=== PATIENT | female | born 1980 | race Caucasian/White ===

== ENCOUNTER 2016-03-06 12:25 | Outpatient (CLI) | payer MEDICAID ==
[2016-03-06 12:38] VITALS: BP 109/69
[2016-03-06] MEDS ORDERED: IBUPROFEN 800 MG TABLET ONE (13:43)
[2016-03-06] MEDS ORDERED: HYDROMORPHONE HCL 2 MG TABLET ONE ×2 (13:44→15:04)
--- NOTE | 2016-03-06 14:01 | L&D Flow Sheet ---
LD Flowsheet Datetime Report Generated by CPN: 03/06/2016 14:00 Datetime: 03/06/2016 13:35 Vaginal Exam Dilatation (cm): 0.0 (Homa Schwarz RN) Exam by: Dr. Swann (Homa Schwarz RN) Vaginal Exam Comments: No tension noted on cerclage. (Homa Schwarz, RN) Communication Communication: Provider at Bedside (Homa Schwarz RN) Provider Notified (Name): Cindyselena (Homa Schwarz RN) Datetime: 03/06/2016 13:24 Pain Pain Scale: 5 (Homa Schwarz RN) Pain Presence: Intermittent (Homa Schwarz RN) Pain Type: Cramping (Homa Schwarz RN) Pain Location: Abdomen; Back (Homa Schwarz RN) Pain Goal: 0 (Homa Schwarz RN) Pain Relief Measures: Comfort Measures (Homa Schwarz RN) Pain Coping: Talking Through Contractions (Homa Schwarz, RN) Vaginal Bleeding: None (Homa Schwarz, RN) Maternal Assessment Level of Consciousness: Fully Conscious (Homa Schwarz, RN) DTR's/Clonus: DTRs 2+; No Clonus (Homa Schwarz, RN) Headache: Occipital; Frontal (Homa Schwarz, RN) Breath Sounds, Left: Clear and Equal (Homa Schwarz, RN) Breath Sounds, Right: Clear and Equal (Homa Schwarz, RN) Nausea/Vomiting: Denies (Homa Schwarz, RN) RUQ Epigastric Pain: Denies (Homa Schwarz, RN) Datetime: 03/06/2016 13:23 Assessment A Monitor Mode: External US (Homa Schwarz, RN) FHR Baseline Rate : 155 (Homa Schwarz, RN) Datetime: 03/06/2016 13:13 Uterine Activity Contraction Comments: TOCO adjusted, referenced. (Homa Schwarz, RN) Datetime: 03/06/2016 13:07 Temperature (F): 99.6 (Homa Schwarz, RN) Temperature (C): 37.6 (QS system process) Datetime: 03/06/2016 13:04 Vital Signs NBP Sys/Altagracia/Mean (mmHg): 119 (QS system process) : 72 (QS system process) : 91 (QS system process) Pulse: 112 (QS system process)
[2016-03-06 14:56] LABS: APPEARANCE,URINE CLOUDY; BILIRUBIN,URINE NEGATIVE (NEGATIVE); GLUCOSE, URINE NEGATIVE (NEGATIVE); KETONES,URINE TRACE mg/dL (NEGATIVE); LEUKOCYTE ESTERASE,URINE LARGE (NEGATIVE); NITRITE,URINE POSITIVE (NEGATIVE); PROTEIN,URINE 30 mg/dL (NEGATIVE); URINE SPECIFIC GRAVITY 1.012; UROBILINOGEN,URINE NEGATIVE mg/dL (<2.0)
[2016-03-06 15:02] LABS: URINE BARBITURATES SCREEN NEGATIVE; URINE METHADONE SCREEN NEGATIVE; URINE OPIATES LOW NEGATIVE; URINE PHENCYCLIDINE SCREEN NEGATIVE
== END 2016-03-06 15:18 | disposition home or self-care (01) ==
LOC: ER 12:25 → LC 12:25 → EDSTATUS 12:52 → LC 15:18
PROVIDERS: ATTEND Specialist
PROC: 4A1HXCZ Monitoring of Products of Conception, Cardiac Rate, External Approach (ICD-10-PCS; principal; 2016-03-06)
DX: O47.02 False labor before 37 completed weeks of gestation, second trimester (principal); O09.522 Supervision of elderly multigravida, second trimester; O99.89 Other specified diseases and conditions complicating pregnancy, childbirth and the puerperium; M54.9 Dorsalgia, unspecified; Z3A.24 24 weeks gestation of pregnancy
CPT/HCPCS: 59899; 81001; 80307; J3490 ×2

== ENCOUNTER 2016-03-07 14:55 | Outpatient (CLI) | payer MEDICAID ==
[2016-03-07 15:06] VITALS: BP 104/61
--- NOTE | 2016-03-07 15:12 | ER Document Report ---
ED Medical Screen (RME) - General Stated Complaint: BACK PAIN, HEADACHE TRAVEL OUTSIDE OF THE [place] IN LAST 30 DAYS: No - Related Data Allergies/Adverse Reactions: iodine Allergy (Verified 11/22/15 10:14) Past Medical History - Past Medical History Cardiac Medical History: Reports: Hx DVT GI Medical History: Reports: Hx Gastritis, Hx Gastroesophageal Reflux Disease, Hx Irritable Bowel Musculoskeltal Medical History: Reports Hx Musculoskeletal Trauma Psychiatric Medical History: Reports: Hx Anxiety, Hx Depression, Hx Post Traumatic Stress Disorder Past Surgical History: Reports: Hx Appendectomy, Hx Oral Surgery - Immunizations Hx Diphtheria, Pertussis, Tetanus Vaccination: Yes
--- NOTE | 2016-03-07 16:00 | L&D Flow Sheet ---
LD Flowsheet Datetime Report Generated by CPN: 03/07/2016 16:00 Datetime: 03/07/2016 15:46 NBP Sys/Altagracia/Mean (mmHg): 108 (QS system process) : 64 (QS system process) : 81 (QS system process) Pulse: 103 (QS system process) LaborFlag: Antepartum (QS system process)
[2016-03-07 16:09] LABS: APPEARANCE,URINE SLIGHTLY-CLOUDY; BILIRUBIN,URINE NEGATIVE (NEGATIVE); GLUCOSE, URINE NEGATIVE (NEGATIVE); KETONES,URINE NEGATIVE (NEGATIVE); LEUKOCYTE ESTERASE,URINE LARGE (NEGATIVE); NITRITE,URINE POSITIVE (NEGATIVE); PROTEIN,URINE NEGATIVE (NEGATIVE); URINE SPECIFIC GRAVITY 1.011
[2016-03-07 16:27] LABS: URINE BARBITURATES SCREEN NEGATIVE; URINE METHADONE SCREEN NEGATIVE; URINE OPIATES LOW NEGATIVE; URINE PHENCYCLIDINE SCREEN NEGATIVE
[2016-03-07] MEDS ORDERED: CEFTRIAXONE INJ 1000 MG VIAL IM ONE (16:34)
[2016-03-07] MEDS ORDERED: LIDOCAINE 1% INJ-PF (10 MG/ML) 30 ML SDV INJ ONE (16:34)
[2016-03-07] MEDS ORDERED: LIDOCAINE 1% INJ-PF (10 MG/ML) 30 ML SDV ONE (16:49)
[2016-03-07] MEDS ORDERED: CEFTRIAXONE INJ 1000 MG VIAL ONE (16:49)
[2016-03-07] MEDS ORDERED: RINGERS SOLUTION,LACTATED 1,000 ML IV PRN (17:00)
[2016-03-07] MEDS ORDERED: CEFTRIAXONE 1 GM/D5W RTU 1 GM/50 ML RTUPB IV ONE (17:20)
[2016-03-07] MEDS ORDERED: ACETAMINOPHEN 100 ML IV ONE (17:20)
--- NOTE | 2016-03-07 18:00 | L&D Flow Sheet ---
LD Flowsheet Datetime Report Generated by CPN: 03/07/2016 18:00 Datetime: 03/07/2016 17:00 NBP Sys/Altagracia/Mean (mmHg): 110 (QS system process) : 69 (QS system process) : 83 (QS system process) Pulse: 100 (QS system process) LaborFlag: Antepartum (QS system process) Datetime: 03/07/2016 16:38 Pain Scale: 5 (Homa Schwarz RN) Pain Presence: Intermittent (Homa Schwarz RN) Pain Type: Cramping (Homa Schwarz RN) Pain Location: Abdomen; Back (Homa Schwarz RN) Pain Goal: 0 (Homa Schwarz RN) Vaginal Bleeding: None (Homa Schwarz RN) Level of Consciousness: Fully Conscious (Homa Schwarz RN) DTR's/Clonus: DTRs 2+; No Clonus (Homa Schwarz RN) Headache: Frontal (Homa Schwarz RN) Breath Sounds, Left: Clear and Equal (Homa Schwarz RN) Breath Sounds, Right: Clear and Equal (Homa Schwarz RN) Nausea/Vomiting: Denies (Homa Schwarz RN) RUQ Epigastric Pain: Denies (Homa Schwarz RN) LaborFlag: Antepartum (QS system process)
[2016-03-07] MEDS ORDERED: OXYCODONE HCL IR 5 MG TABLET ONE (18:15)
[2016-03-07] MEDS ORDERED: OXYCODONE HCL IR 5 MG TABLET PO ONE (18:29)
== END 2016-03-07 18:20 | disposition home or self-care (01) ==
LOC: LC 14:55 → ER 14:55 → EDSTATUS 15:22 → LC 18:20
PROC: 4A1HXCZ Monitoring of Products of Conception, Cardiac Rate, External Approach (ICD-10-PCS; principal; 2016-03-07)
DX: O23.42 Unspecified infection of urinary tract in pregnancy, second trimester (principal); O26.892 Other specified pregnancy related conditions, second trimester; R10.9 Unspecified abdominal pain; Z3A.24 24 weeks gestation of pregnancy
CPT/HCPCS: 59899; 87086; 87088; 81001; 87186; 80307; 76815; J3490 ×2; J0696 ×2; J0131

== ENCOUNTER 2016-03-09 23:18 | Outpatient (CLI) | payer MEDICAID ==
[2016-03-09 23:54] LABS: APPEARANCE,URINE CLEAR; BILIRUBIN,URINE NEGATIVE (NEGATIVE); GLUCOSE, URINE NEGATIVE (NEGATIVE); KETONES,URINE NEGATIVE (NEGATIVE); LEUKOCYTE ESTERASE,URINE NEGATIVE (NEGATIVE); NITRITE,URINE NEGATIVE (NEGATIVE); PROTEIN,URINE NEGATIVE (NEGATIVE); URINE SPECIFIC GRAVITY 1.006; UROBILINOGEN,URINE NEGATIVE mg/dL (<2.0)
[2016-03-09 23:59] LABS: AMNISURE (ROM) POSITIVE (NEGATIVE)
[2016-03-10] MEDS ORDERED: AMPICILLIN SOD INJ 2 GM VIAL IV ONE (00:12)
[2016-03-10] MEDS ORDERED: AZITHROMYCIN INJ 500 MG VIAL IV ONE ×2 (00:12→00:20)
[2016-03-10] MEDS ORDERED: BETAMET ACET/BETAMET NA INJ 6 MG/1 ML IM PRN (00:12)
[2016-03-10 00:14] LABS: URINE BARBITURATES SCREEN NEGATIVE; URINE METHADONE SCREEN NEGATIVE; URINE OPIATES LOW NEGATIVE; URINE PHENCYCLIDINE SCREEN NEGATIVE
[2016-03-10] MEDS ORDERED: AMPICILLIN SOD INJ 2 GM VIAL ONE (00:20)
[2016-03-10] MEDS ORDERED: BETAMET ACET/BETAMET NA INJ 6 MG/1 ML ONE (00:20)
[2016-03-10] MEDS ORDERED: MAGNESIUM SULFATE 100 ML IV ONE (00:32)
[2016-03-10] MEDS ORDERED: MAGNESIUM SULFATE 500 ML IV PRN (00:33)
[2016-03-10] MEDS ORDERED: MAGNESIUM SULFATE 4 GM/100 ML RTUPB IV ONE (00:36)
[2016-03-10] MEDS ORDERED: ONDANSETRON HCL INJ/PF 4 MG/2 ML SDV IV ONE (00:44)
[2016-03-10] MEDS ORDERED: ONDANSETRON HCL INJ/PF 4 MG/2 ML SDV ONE (00:46)
[2016-03-10] MEDS ORDERED: AMPICILLIN SODIUM 2 GM in NORMAL SALINE 100 ML IV PRN (00:48)
--- NOTE | 2016-03-10 00:49 | PDOC TRANSFER SUMMARY ---
General Admission Date/PCP: LILLIAN SUTTON DO Admission Date: 03/10/16 Transfer Date: 03/10/16 Accepting Facility: [facility] Accepting Physician: Dr Maynard Resuscitation Status: Full Code - Transfer Diagnosis (1) complicated by cervical shortening in second trimester Is this a current diagnosis for this admission?: Yes (2) premature rupture of membranes, antepartum Is this a current diagnosis for this admission?: Yes - Transfer Medications Home Medications: Cephalexin Monohydrate [Keflex 500 mg Capsule] 500 mg PO TID 03/10/16 Transfer Medications: Current Medications Ampicillin Sodium (Omnipen Inj 2 Gm Vial) 2 gm IV IVBAG (ED) ONE Stop: 03/10/16 00:13 Azithromycin (Zithromax Inj 500 Mg Vial) 500 mg IV IVBAG (ED) ONE Stop: 03/10/16 00:13 Betamethasone Acet/Betameth SodPhos (Celestone Inj 6 Mg/1 Ml) 6 mg IM ONCE PRN Stop: 04/09/16 00:11 - Allergies Allergies/Adverse Reactions: iodine Allergy (Verified 11/22/15 10:14) - Diet/Activity Discharge Diet: As Tolerated, Regular Discharge Activity: Bedrest, Pelvic Rest Hospital Course Hospital Course: 35yo EDC 06/08/2016 EGA 25+0 presents c/o leakage of fluid since 2230 . Pt reports only occasional cramping and denies and vaginal bleeding. Patient denies trauma, vaginal intercourse or drug use. She has had 3 prior term deliveries without complication. This she was noted to have asymptomatic shortening cervix and M placed a cerclage around 02/10/16. Patient reported no complications until this week when noted to have uti and started on keflex yesterday. Pt reports no other medications (stopped zemerona and ASA). 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 She did develop a DVT from this but has not been on any anticoagulation. Physical Exam Vital Signs: Intake & Output 03/08/16 03/09/16 03/10/16 06:59 06:59 06:59 Weight 74 kg General appearance: PRESENT: no acute distress, cooperative Respiratory exam: PRESENT: clear to auscultation mirna Cardiovascular exam: PRESENT: RRR GI/Abdominal exam: PRESENT: normal bowel sounds, soft. ABSENT: distended, guarding, mass, organolmegaly, rebound, tenderness Gentrourinary exam: PRESENT: other - fht 150 age appropriate, toco no ctx noted. Uterus is nontender Sterile Spec exam +pooling (also + Amnisure). cerclage in place. cervix appears several cm LONG and closed. no bleeding is noted Extremities exam: PRESENT: full ROM. ABSENT: calf tenderness, clubbing, pedal edema Psychiatric exam: PRESENT: appropriate affect, normal mood. ABSENT: homicidal ideation, suicidal ideation Results Laboratory Results: 03/09/16 23:29 Urine Color STRAW Urine Appearance CLEAR Urine pH 7.0 Ur Specific [place] 1.006 Urine Protein NEGATIVE Urine Glucose (UA) NEGATIVE Urine Ketones NEGATIVE Urine Blood SMALL H Urine Nitrite NEGATIVE Ur Leukocyte Esterase NEGATIVE Urine WBC (Auto) 3 Urine RBC (Auto) 1 Plan Discharge Plan: Transfer to [facility] for teriary care and NICU. Betamethasone given. Ampicillin and zithromax IV given. Magnesium Sulfate for neuroprotection and aid with transfer.
[2016-03-10] MEDS ORDERED: AMPICILLIN SOD INJ 2 GM VIAL IV PRN (00:50)
[2016-03-10] MEDS ORDERED: DIPHENHYDRAMINE HCL 25 MG CAPSULE ONE (01:07)
[2016-03-10] MEDS ORDERED: DIPHENHYDRAMINE HCL 50 MG/ML VIAL ONE (01:08)
--- NOTE | 2016-03-10 04:46 | L&D Flow Sheet ---
LD Flowsheet Datetime Report Generated by CPN: 03/10/2016 04:45 Datetime: 03/10/2016 01:52 Communication Comments: [facility] service left with patient for [facility] (Trudy Field, RN) Datetime: 03/10/2016 01:32 NBP Sys/Altagracia/Mean (mmHg): 113 (QS system process) : 68 (QS system process) : 85 (QS system process) Pulse: 93 (QS system process) LaborFlag: Antepartum (QS system process) Datetime: 03/10/2016 01:30 Monitor Mode: External; Palpation (Trudy Field, RN) Frequency (min): Irritability (Trudy Field, RN) Resting Tone (Palpate): Relaxed (Trudy Field, RN) Contraction Comments: No contractions noted on strip (Trudy Field, RN) Datetime: 03/10/2016 01:21 Communication: Report Given to @ A.Doff, RN at [facility] (Trudy Field, RN) Datetime: 03/10/2016 01:20 NBP Sys/Altagracia/Mean (mmHg): 108 (QS system process) : 62 (QS system process) : 80 (QS system process) Pulse: 93 (QS system process) LaborFlag: Antepartum (QS system process) Datetime: 03/10/2016 01:16 Medication Comments: 2 gm started (Trudy Field, RN) Datetime: 03/10/2016 01:15 Monitor Mode: External; Palpation (Trudy Field, RN) Frequency (min): Irritability (Trudy Field, RN) Resting Tone (Palpate): Relaxed (Trudy Field, RN) Contraction Comments: No contractions noted on strip (Trudy Field, RN) Datetime: 03/10/2016 01:10 Communication Comments: Pt experiencing pruritis. Call placed to Dr Salas and made aware of same. Orders received from Dr Salas for Benadryl 50mg IVP. Orders carried out, primary RN J Bass made aware, medication obtained and given to primary RN. (Gifty Lane, RN) Datetime: 03/10/2016 01:07 Patient Care Comments: Consents for transfer signed. (Simi Richard, RN) Datetime: 03/10/2016 01:00 Monitor Mode: External; Palpation (Trudy Rosado RN) Frequency (min): Irritability (Trudy Rosado, RN) Resting Tone (Palpate): Relaxed (Trudy Rosado, RN) Contraction Comments: No contractions noted on strip (Trudy Rosado, RN) Datetime: 03/10/2016 00:57 Magnesium/Antihypertensives: Magnesium Sulfate IV Loading (Gm) @ 4 gm (Simi Richard, RN) Datetime: 03/10/2016 00:54 Communication: Report Given to @ Anisa, RN (Rtudy Field, RN) Communication Comments: Report given to [facility] transport center (Trudy Field, RN) Datetime: 03/10/2016 00:52 Antibiotics: Zithromax (Simi Richard, RN) Medication Comments: 500 mg IV hung. (Simi Richard, RN) Datetime: 03/10/2016 00:50 Antibiotics: Zithromax (Trudy Field, RN) Medication Comments: 500 mg (Trudy Field, RN) Datetime: 03/10/2016 00:46 Antiemetics/Antacids: Zofran IV (mg) @ 4 (Trudy Field, RN) Datetime: 03/10/2016 00:44 Antibiotics: Ampicillin IV 2 Gm (Trudy Field, RN) Datetime: 03/10/2016 00:35 Communication Comments: Pt experiencing some nausea after IV insertion. Dr Salas on unit and made aware of same. Orders received for 4mg Zofran IVP. Orders carried out, primary RN J Bass made aware of same. (Gifty Lane RN) Datetime: 03/10/2016 00:31 Steroids: Celestone 12mg IM - Dose 1 (Trudy Rosado, YOSVANY) Datetime: 03/10/2016 00:30 Monitor Mode: External; Palpation (Trudy Rosado RN) Resting Tone (Palpate): Relaxed (Trudy Rosado RN) Contraction Comments: No contractions noted on strip (Trudy Rosado RN) IV/Blood Work: IV Started; IV Bolus Started; New IV Bag Hung (Gifty Lane RN) Datetime: 03/10/2016 00:17 Communication Comments: DrAriana Salas at bedside (Trudy Rosado, RN) Datetime: 03/10/2016 00:10 NBP Sys/Altagracia/Mean (mmHg): 107 (QS system process) : 66 (QS system process) : 81 (QS system process) Pulse: 88 (QS system process) LaborFlag: Antepartum (QS system process) Datetime: 03/10/2016 00:08 Communication: RN Reviewed Strip; Provider Orders Received (Trudy Rosado RN) Communication Comments: Orders received from Dr. Salas for Amp 2 gms; dose of betamethazone; dose of zithromax 500 mg IV x1 (Trudy Rosado, RN) Datetime: 03/10/2016 00:00 Monitor Mode: External; Palpation (Trudy Rosado RN) Resting Tone (Palpate): Relaxed (Trudy Rosado RN) Contraction Comments: No contractions noted on strip; patient states she is cramping (Trudy Rosado RN) Monitor Mode: External US (Trudy Rosado RN) FHR Baseline Rate : 130 (Trudy Rosado RN) Variability: Moderate 6-25 bpm (Trudy Rosado RN) Comments: Appropriate for gestational age (Trudy Rosado RN) Datetime: 03/09/2016 23:46 Pain Scale: 3 (Trudy Rosado RN) Pain Presence: Intermittent (Trudy Rosado RN) Pain Type: Cramping (Trudy Rosado RN) Pain Location: Abdomen (Trudy Rosado, RN) Pain Goal: 0 (Trudy Rosado RN) Pain Relief Measures: Comfort Measures (Trudy Rosado RN) Pain Coping: Talking Through Contractions; Breathing Through Contractions (Trudy Rosado RN) Vaginal Bleeding: None (Trudy Rosado RN) Level of Consciousness: Fully Conscious (Trudy Rosado RN) DTR's/Clonus: DTRs 1+; No Clonus (Trudy Rosado RN) Headache: Generalized (Trudy Rosado RN) Breath Sounds, Left: Clear and Equal (Trudy Rosado RN) Breath Sounds, Right: Clear and Equal (Trudy Rosado RN) Nausea/Vomiting: Present (Trudy Rosado RN) RUQ Epigastric Pain: Denies (Trudy Rosado RN) Instructional Method: Verbal; Patient Instructed; Verbalized Understanding (Trudy Rosado RN) Plan of Care: Plan of Care Discussed (Trudy Rosado RN) Unit Routine: Norris to Room; Call Manriquez; Bed; Visiting Policy; Waiting Areas; Phone/Cell Phone Use; Unit Personnel; Handwashing; Flu/Illness Precautions; Monitoring; Safety/Fall Risk Prevention; Bathroom Privileges (Trudy Rosado RN) LaborFlag: Antepartum (QS system process) Datetime: 03/09/2016 23:40 NBP Sys/Altagracia/Mean (mmHg): 131 (QS system process) : 61 (QS system process) : 84 (QS system process) Pulse: 80 (QS system process) LaborFlag: Antepartum (QS system process) Datetime: 03/09/2016 23:38 Stage of : Antepartum (Simi Ramos RN)
--- NOTE | 2016-03-10 04:46 | L&D Current Admission ---
Current Admit Datetime Report Generated by CPN: 03/10/2016 04:45 ADMISSION INFORMATION Chief Complaint: Suspected Rupture of Membranes (03/09/2016 23:46:Trudy Rosado RN) Chief Complaint: Back Pain; Headache (03/07/2016 16:38:Homa Schwarz RN) Chief Complaint: Uterine Cramping; Back Pain (03/06/2016 13:24:Homa Schwarz RN)
--- NOTE | 2016-03-10 04:46 | L&D General Admission ---
General Admit Datetime Report Generated by CPN: 03/10/2016 04:45 INFORMATION Patient Age: 35 (03/06/2016 12:50:QS system process) EDC: 06/26/2016 00:00 (03/06/2016 13:07:Virgen Calles RN) : 6 (03/06/2016 13:07:Homa Schwarz RN) Para: 3 (03/10/2016 02:01:Trudy Rosado RN) Para: 3 (03/07/2016 18:42:Virgen Calles RN) Para: 3 (03/06/2016 13:07:Homa Schwarz RN) Term: 3 (03/06/2016 13:07:Homa Schwarz RN) : 0 (03/06/2016 13:07:Homa Schwarz RN) Spontaneous Abortions: 2 (03/06/2016 13:07:Homa Schwarz RN) Induced Abortions: 0 (03/06/2016 13:07:Homa Schwarz RN) Livin (03/06/2016 13:07:Homa Schwarz RN) Cesareans: 0 (03/06/2016 13:07:Homa Schwarz RN) VBACs: 0 (03/06/2016 13:07:Homa Schwarz RN) Ectopic: 0 (03/06/2016 13:07:Homa Schwarz RN) Multiple Births: 0 (03/06/2016 13:07:Homa Schwarz RN) Baby, Number in Womb: 1 (03/10/2016 02:01:Trudy Rosado RN) Baby, Number in Womb: 1 (03/07/2016 18:42:Virgen Calles RN) Baby, Number in Womb: 1 (03/06/2016 13:07:Homa Schwarz RN) CARE Primary Information Security: [facility] (03/06/2016 13:07:Homa Schwarz RN) Month of 1st Visit: February 2016 (03/06/2016 13:07:Homa Schwarz RN) Adequate Care: Yes (03/06/2016 13:07:Homa Schwarz RN) Height (in): 66 (03/10/2016 00:10:QS system process) Height (in): 66 (03/07/2016 18:12:QS system process) Height (in): 66 (03/07/2016 18:11:QS system process) Height (in): 66 (03/07/2016 15:22:QS system process) Height (in): 66 (03/06/2016 13:01:QS system process) Height (in): 66 (03/06/2016 12:59:QS system process) Height (in): 66 (03/06/2016 12:57:QS system process) Height (in): 66 (03/06/2016 12:55:QS system process) Height (in): 66 (03/06/2016 12:52:QS system process) Height (in): 66 (03/06/2016 12:50:QS system process) ALLERGIES Medication Allergy: No (03/06/2016 13:07:Homa Schwarz RN) Medication Allergies: iodine (11/22/2015) (03/06/2016 12:50:QS system process) Latex Allergy: No Latex Allergies (03/06/2016 13:07:Homa Schwarz RN) Food Allergies: seafood (03/06/2016 13:07:Homa Schwarz RN) Environmental Allergies: None (03/06/2016 13:07:Homa Schwarz RN) COMMUNICATION Primary Language: Niuean (03/06/2016 13:07:Homa Schwarz RN) Medical Tx Preferred Language: Niuean (03/06/2016 13:07:Homa Schwarz RN) Communication Barrier(s): None (03/06/2016 13:07:Homa Schwarz RN) DEMOGRAPHICS Address: [address] [place] [id number] (03/06/2016 12:50:QS system process) Zipcode: [address] (03/06/2016 12:50:QS system process) Home (03/06/2016 12:50:QS system process) SSN: [id number] (03/06/2016 12:50:QS system process) Next of Kin Name: CHERIE LEWIS (03/06/2016 12:50:QS system process) Next of Kin (03/06/2016 12:50:QS system process) Next of Kin Relationship: CH (03/06/2016 12:50:QS system process) Date of : 1980 (03/06/2016 12:50:QS system process) Marital Status: (03/06/2016 12:50:QS system process) Sex: Female (03/06/2016 12:50:QS system process) Race: (03/06/2016 12:50:QS system process) Ethnicity: Non- or (03/06/2016 12:50:QS system process) Confucianism: Jehovah'S Witness (03/06/2016 12:50:QS system process) DRUG AND ALCOHOL USE Alcohol: No (03/06/2016 13:07:Homa Schwarz RN) Cigarettes: Never Smoker. [id number] (03/06/2016 13:07:Homa Schwarz RN) Marijuana: No (03/06/2016 13:07:Homa Schwarz RN) Cocaine: No (03/06/2016 13:07:Homa Schwarz RN) Other Illicit Drugs: No (03/06/2016 13:07:Homa Schwarz RN) VACCINE HISTORY Influenza Vaccine: No (03/06/2016 13:07:Homa Schwarz RN) Pneumococcal Vaccine: No (03/06/2016 13:07:Homa Schwarz RN) Tetanus Vaccine: No (03/06/2016 13:07:Homa Schwarz RN) Tdap Vaccine: No (03/06/2016 13:07:Homa Schwarz RN) Hepatitis B Vaccine: No (03/06/2016 13:07:Homa Schwarz RN) Circumcision: No (03/06/2016 13:07:Homa Schwarz RN) Classes Attended: No (03/06/2016 13:07:Homa Schwarz RN) Tubal Ligation: Yes (03/06/2016 13:07:Homa Schwarz RN) Tubal Authorization Signed: N/A (03/06/2016 13:07:Homa Schwarz RN) Consent: N/A (03/06/2016 13:07:Homa Schwarz RN) Consent Signed: N/A (03/06/2016 13:07:Homa Schwarz RN) Pain Management Plans: Medications (03/06/2016 13:07:Homa Schwarz RN) Plans for Labor and Delivery: None (03/06/2016 13:07:Homa Schwarz RN) Support Person: Cherie Lewis (03/06/2016 13:07:Homa Schwarz RN) Support Person Relationship: Other (03/06/2016 13:07:Homa Schwarz RN) Other Relationship: daughter (03/06/2016 13:07:Homa Schwarz RN) Cultural/Spritual Practice: No (03/06/2016 13:07:Homa Schwarz RN) Spir/Cult Dietary Needs: No (03/06/2016 13:07:Homa Schwarz RN) LIVING SITUATION/DISCHARGE PLAN Living Arrangements: House (03/06/2016 13:07:Homa Schwarz RN) Adequate Access to:: Electric; Heat; Refrigeration; Plumbing/Running water; Phone; Transportation (03/06/2016 13:07:Homa Schwarz RN) WIC Program: Yes (03/06/2016 13:07:Homa Schwarz RN) Discharge Ios Developer Person: Cherie Lewis (03/06/2016 13:07:Homa Schwarz RN) Person to Help after Discharge: Cherie Lewis (03/06/2016 13:07:Homa Schwarz RN) Currently Using Commun Resources: Yes (03/06/2016 13:07:Homa Schwarz RN) Specify Current Resource Used: Medicaid (03/06/2016 13:07:Homa Schwarz RN) Outside Agency/Tail Edger: Yes (03/06/2016 13:07:Homa Schwarz RN) Specify Agency/ Tail Edger: unsure (03/06/2016 13:07:Homa Schwarz RN) Adoption Requested: No (03/06/2016 13:07:Homa Schwarz RN) Pt Contact w/infant Post : N/A (03/06/2016 13:07:Homa Schwarz RN) OB/PREVIOUS HISTORY Previous Procedures: Ultrasound; NST (03/06/2016 13:07:Homa Shcwarz RN) Current Procedures: Ultrasound; NST; Cerclage (03/06/2016 13:07:Homa Schwarz RN) History of Previous : No (03/06/2016 13:07:Homa Schwarz RN) History of Gestational Diabetes: No (03/06/2016 13:07:Homa Schwarz RN) History of PIH: No (03/06/2016 13:07:Homa Schwarz RN) History of Incompetent Cervix: No (03/06/2016 13:07:Homa Schwarz RN) History of Placenta Previa/Abrup: No (03/06/2016 13:07:Homa Schwarz RN) History of Macrosomia: No (03/06/2016 13:07:Homa Schwarz RN) History of IUGR: No (03/06/2016 13:07:Homa Schwarz RN) History of Hemorrhage: No (03/06/2016 13:07:Homa Schwarz RN) History of Loss/Stillborn: No (03/06/2016 13:07:Homa Schwarz RN) History of : No (03/06/2016 13:07:Homa Schwarz RN) History of D (Rh) Sensitization: No (03/06/2016 13:07:Homa Schwarz RN) History Recurrent Loss/Stillborn: No (03/06/2016 13:07:Homa Schwarz RN) History Depression/PP Depression: Yes (03/06/2016 13:07:Homa Schwarz RN) History of Uterine Anomaly/CRISTINE: No (03/06/2016 13:07:Homa Schwarz RN) History of Infertility: No (03/06/2016 13:07:Homa Schwarz RN) History of ART Treatment: No (03/06/2016 13:07:Homa Schwarz RN) History of CRISTINE: No (03/06/2016 13:07:Homa Schwarz RN) Comments Obstetrical History: G1 - 41 wks (1998) G2 - 41 wks (2000) G3 - 41 wks (2003) G4 - SAB at 5 wks (2015) G5 - SAB at 9 wks (2015) G6 - current (cerclage for short cervix), AMA (03/06/2016 13:07:Homa Schwarz RN) MEDICAL HISTORY Med Hx Diabetes: No (03/06/2016 13:07:Homa Schwarz RN) Med Hx Hypertension: No (03/06/2016 13:07:Homa Schwarz RN) Med Hx Heart Disease: No (03/06/2016 13:07:Homa Schwarz RN) Med Hx Autoimmune Disorder: Yes (03/06/2016 13:07:Homa Schwarz RN) Med Hx Kidney Disease/UTI: No (03/06/2016 13:07:Homa Schwarz RN) Med Hx Neurologic/Epilepsy: No (03/06/2016 13:07:Homa Schwarz RN) Med Hx Psychiatric Disorders: Yes (03/06/2016 13:07:Homa Schwarz RN) Med Hx Hepatitis/Liver Disease: No (03/06/2016 13:07:oHma Schwarz RN) Med Hx Varicosities/Phlebitis: No (03/06/2016 13:07:Homa Schwarz RN) Med Hx Thyroid Dysfunction: No (03/06/2016 13:07:Homa Schwarz RN) Med Hx Trauma/Violence: No (03/06/2016 13:07:Homa Schwarz RN) Med Hx Blood Transfusion: No (03/06/2016 13:07:Homa Schwarz RN) Med Hx Pulmonary (Asthma,TB): No (03/06/2016 13:07:Homa Schwarz RN) Med Hx Breast: No (03/06/2016 13:07:Homa Schwarz RN) Med Hx INSTRUCTOR OF EDUCATION Surgery: No (03/06/2016 13:07:Homa Schwarz RN) Med Hx Hospitalization/Surgery: Yes (03/06/2016 13:07:Homa Schwarz RN) Med Hx Anesthetic Complications: No (03/06/2016 13:07:Homa Schwarz RN) Med Hx Abnormal Pap Smear: No (03/06/2016 13:07:Homa Schwarz RN) Other Medical Diseases: No (03/06/2016 13:07:Homa Schwarz RN) Med Hx Significant Family Hx: No (03/06/2016 13:07:Homa Schwarz RN) Details of Med/Surg Hx: Guillian [place] Syndrome, Anxiety _ Depression, hx DVT, x 3, appendectomy 2005 (03/06/2016 13:07:Homa Schwarz RN) INFECTIOUS HISTORY Inf Hx Gonorrhea: No (03/06/2016 13:07:Homa Schwarz RN) Inf Hx Chlamydia: No (03/06/2016 13:07:Homa Schwarz RN) Inf Hx Syphilis: No (03/06/2016 13:07:Homa Schwarz RN) Inf Hx HIV/AIDS: No (03/06/2016 13:07:Homa Schwarz RN) Inf Hx Human Papilloma Virus: No (03/06/2016 13:07:Homa Schwarz RN) Inf Hx Pt/Partner Genital Herpes: No (03/06/2016 13:07:Homa Schwarz RN) Inf Hx Tuberculosis/Exposure: No (03/06/2016 13:07:Homa Schwarz RN) Inf Hx Hepatitis B,C: No (03/06/2016 13:07:Homa Schwarz RN) Inf Hx Rash or Viral Illness: No (03/06/2016 13:07:Homa Schwarz RN) GENETIC HISTORY Gen Hx Age >=35 at JOYCE: No (03/06/2016 13:07:Homa Schwarz RN) Gen Hx Thalassemia: No (03/06/2016 13:07:Homa Schwarz RN) Gen Hx Congenital Heart Defect: No (03/06/2016 13:07:Homa Schwarz RN) Gen Hx Neural Tube Defect: No (03/06/2016 13:07:Homa Schwarz RN) Gen Hx Down's Syndrome: No (03/06/2016 13:07:Homa Schwarz RN) Gen Hx Ashutosh-Sachs: No (03/06/2016 13:07:Homa Schwarz RN) Gen Hx Elayne: No (03/06/2016 13:07:Homa Schwarz RN) Gen Hx Familial Dysautonomia: No (03/06/2016 13:07:Homa Schwarz RN) Gen Hx Sickle Cell Disease/Trait: No (03/06/2016 13:07:Homa Schwarz RN) Gen Hx Hemophilia/Blood Disorder: No (03/06/2016 13:07:Homa Schwarz RN) Gen Hx Muscular Dystrophy: No (03/06/2016 13:07:Homa Schwarz RN) Gen Hx Cystic Fibrosis: No (03/06/2016 13:07:Homa Schwarz RN) Gen Hx Huntingtons Chorea: No (03/06/2016 13:07:Homa Schwarz RN) Gen Hx Mental Retardation/Autism: No (03/06/2016 13:07:Homa Schwarz RN) Gen Hx Tested for Fragile X: No (03/06/2016 13:07:Homa Schwarz RN) Gen Hx Other Inher/Chromosomal: No (03/06/2016 13:07:Homa Schwarz RN) Gen Hx Maternal Metabolic DO: No (03/06/2016 13:07:Homa Schwarz RN) Gen Hx Pt Father or FOB Defect: No (03/06/2016 13:07:Homa Schwarz RN) Gen Hx Other Genetic History: No (03/06/2016 13:07:Homa Schwarz RN) Gen Hx Drugs/Meds since LMP: No (03/06/2016 13:07:Homa Schwarz RN)
--- NOTE | 2016-03-10 04:46 | Antepartum Discharge Summary ---
Antepartum DC Datetime Report Generated by CPN: 03/10/2016 04:45 Diet: Regular (03/10/2016 02:01:Trudy Rosado RN) Diet: Regular (03/07/2016 18:42:Virgen Calles RN) Activity: Normal Activity (03/07/2016 18:42:Virgen Calles RN) Activity Restrictions: No Exercising; Minimize Walking; No Sexual Activity; Nothing in Vagina - [place], Tampons, [place] (03/07/2016 18:42:Virgen Calles RN) Instructions Given To: Patient (03/07/2016 18:42:Virgen Calles RN) Instructions Understood: Patient Verbalized Understanding (03/07/2016 18:42:Virgen Calles RN) Referrals: None (03/07/2016 18:42:Virgen Calles RN) Educational Materials- Other: UTI (03/07/2016 18:42:Virgen Calles RN) Discharged AMA: No (03/10/2016 02:01:Trudy Rosado RN) Discharged AMA: No (03/07/2016 18:42:Virgen Calles RN) Discharge Date/Time: 03/10/2016 01:52 (03/10/2016 02:01:Trudy Rosado RN) Discharge Date/Time: 03/07/2016 18:20 (03/07/2016 18:42:Virgen Calles RN) Discharged To: Other (03/10/2016 02:01:Trudy Rosado RN) Discharged To: Home (03/07/2016 18:42:Virgen Calles RN) Discharge Provider Name: Dr. Salas (03/10/2016 02:01:Trudy Rosado RN) Discharge Provider Name: Dr Morelos (03/07/2016 18:42:Virgen Calles RN) Accompanied By: Self (03/10/2016 02:01:Trudy Rosado RN) Accompanied By: Family (03/07/2016 18:42:Virgen Calles RN) Discharge Method: Stretcher (03/10/2016 02:01:Trudy Rosado RN) Discharge Method: Wheelchair (03/07/2016 18:42:Virgen Calles RN) Condition: Stable (03/10/2016 02:01:Trudy Rosado RN) Condition: Stable (03/07/2016 18:42:Virgen Calles RN) Follow Up With: [facility] (03/07/2016 18:42:Virgen Calles RN) Follow Up On: As Scheduled (03/07/2016 18:42:Virgen Calles RN) Comments: Patient SROM and was transported via [facility] to [facility]. (03/10/2016 02:01:Trudy Rosado RN) Comments: s/s to report to provider (Annotations: Data stored by CPN on behalf of user) (03/07/2016 18:42:Virgen Calles RN)
--- NOTE | 2016-03-10 04:46 | L&D Admission Assessment ---
LD ADM ASMT Datetime Report Generated by CPN: 03/10/2016 04:45 Assessment Type: Triage (03/09/2016 23:46:Trudy Rosado RN) Weight (lb): 163 (03/10/2016 00:10:QS system process) Weight (kg): 74.1 (03/10/2016 00:10:QS system process) BMI: 26.3 (03/10/2016 00:10:QS system process) Pain Scale: 3 (03/09/2016 23:46:Trudy Rosado RN) Pain Presence: Intermittent (03/09/2016 23:46:Trudy Rosado RN) Pain Type: Cramping (03/09/2016 23:46:Trudy Rosado RN) Pain Location: Abdomen (03/09/2016 23:46:Trudy Rsoado RN) Pain Goal: 0 (03/09/2016 23:46:Trudy Rosado RN) Pain Related to Contraction: Unsure (03/09/2016 23:46:Trudy Rosado RN) Frequency (min): Irritability (03/10/2016 01:30:Trudy Rosado RN) Frequency (min): Irritability (03/10/2016 01:15:Trudy Rosado RN) Frequency (min): Irritability (03/10/2016 01:00:Trudy Rosado RN) Resting Tone [place]: Relaxed (03/10/2016 01:30:Trudy Rosado RN) Resting Tone [place]: Relaxed (03/10/2016 01:15:Trudy Rosado RN) Resting Tone [place]: Relaxed (03/10/2016 01:00:Trudy Rosado RN) Resting Tone [place]: Relaxed (03/10/2016 00:30:Trudy Rosado RN) Resting Tone [place]: Relaxed (03/10/2016 00:00:Trudy Rosado RN) Contraction Comments: No contractions noted on strip (03/10/2016 01:30:Trudy Rosado RN) Contraction Comments: No contractions noted on strip (03/10/2016 01:15:Trudy Rosado RN) Contraction Comments: No contractions noted on strip (03/10/2016 01:00:Trudy Rosado RN) Contraction Comments: No contractions noted on strip (03/10/2016 00:30:Trudy Rosado RN) Contraction Comments: No contractions noted on strip; patient states she is cramping (03/10/2016 00:00:Trudy Rosado RN) Level of Consciousness: Fully Conscious (03/09/2016 23:46:Trudy Rosado RN) DTR's/Clonus: DTRs 1+; No Clonus (03/09/2016 23:46:Trudy Rosado RN) Headache: Generalized (03/09/2016 23:46:Trudy Rosado RN) Dizziness: No (03/09/2016 23:46:Trudy Rosado RN) Blurred Vision: No (03/09/2016 23:46:Trudy Rosado RN) Extremity Numbness/Tingling : None (03/09/2016 23:46:Trudy Rosado RN) Extremity Movement: Full Range of Motion (03/09/2016 23:46:Trudy Rosado RN) Heart Rhythm: Regular (03/09/2016 23:46:Trudy Rosado RN) Nailbeds: [place] (03/09/2016 23:46:Trudy Rosado RN) Capillary Refill: Less than 3 Seconds (03/09/2016 23:46:Trudy Rosado RN) Lower Extremities Edema: None (03/09/2016 23:46:Trudy Rosado RN) Lower Extremities Edema Degree: None (03/09/2016 23:46:Trudy Rosado RN) Upper Extremities Edema: None (03/09/2016 23:46:Trudy Rosado RN) Upper Extremities Edema Degree: None (03/09/2016 23:46:Trudy Rosado RN) Facial Edema: None (03/09/2016 23:46:Trudy Rosado RN) Tri's Sign Left Leg: Negative (03/09/2016 23:46:Trudy Rosado RN) Tri's Sign Right Leg: Negative (03/09/2016 23:46:Trudy Rosado RN) DVT Risk Age: Age less than 41 years (03/09/2016 23:46:Trudy Rosado RN) DVT Risk BMI: BMI<31 (03/09/2016 23:46:Trudy Rosado RN) DVT Risk Surgery: History of Prior Major Surgery (03/09/2016 23:46:Trduy Rosado RN) DVT Risk Other: Women Only- or (<1 month) (03/09/2016 23:46:Trudy Rosado RN) DVT Risk Total: 2 (03/09/2016 23:46:QS system process) DVT Risk Text: Moderate Risk (10-20%) - Consider stockings, compresssion device, pharmacological therapy per hospital policy (03/09/2016 23:46:QS system process) Respiratory Effort: Unlabored; Regular Rhythm; Equal Expansion (03/09/2016 23:46:Trudy Rosado RN) Breath Sounds, Left: Clear and Equal (03/09/2016 23:46:Trudy Rosado RN) Breath Sounds, Right: Clear and Equal (03/09/2016 23:46:Trudy Rosado RN) Cough Productivity: None (03/09/2016 23:46:Trudy Rosado RN) Nausea/Vomiting: Present (03/09/2016 23:46:Trudy Rosado RN) Bowel Sounds: Normoactive (03/09/2016 23:46:Trudy Rosado RN) RUQ Epigastric Pain: Denies (03/09/2016 23:46:Trudy Rosado RN) Bowel Patterns: Soft, Formed Stool (03/09/2016 23:46:Trudy Rosado RN) Hemorrhoids: None (03/09/2016 23:46:Trudy Rosado RN) Diet Type: Regular diet (03/09/2016 23:46:Trudy Rosado RN) Last Meal: 03/09/2016 19:30 (03/09/2016 23:46:Trudy Rosado RN) Bladder: Nondistended (03/09/2016 23:46:Trudy Rosado RN) Frequency of Urination: No (03/09/2016 23:46:Trudy Rosado RN) Urination Burning: No (03/09/2016 23:46:Trudy Rosado RN) CVA Tenderness: No (03/09/2016 23:46:Trudy Rosado RN) Skin Color: Normal for Race (03/09/2016 23:46:Trudy Rosado RN) Skin Temperature: Warm (03/09/2016 23:46:Trudy Rosado RN) Skin Moisture: Dry (03/09/2016 23:46:Trudy Rosado RN) Vu Scale Sensory Perception: No Impairment- Responds to verbal commands. Has no sensory deficit which would limit ability to feel or voice pain or discomfort (03/09/2016 23:46:Trudy Rosado RN) Vu Scale Moisture: Rarely Moist- Skin is usually dry. Linen only requires changing at routine intervals (03/09/2016 23:46:Trudy Rosado RN) Vu Scale Activity: Walks Frequently- Walks outside the room at least twice a day and inside room at least every 2 hours during the day. (03/09/2016 23:46:Trudy Rosado RN) Vu Scale Mobility: No Limitations- Makes major and frequent changes in position without assistance (03/09/2016 23:46:Trudy Rosado RN) Vu Scale Nutrition: Excellent- Eats most of every meal. Never refuses a meal. Usually eats a total of 4 or more servings of meat and dairy products. Occasionally eats between meals. Does not require supplementation (03/09/2016 23:46:Trudy Rosado RN) Vu Scale Friction and Shear: No Apparent Problem- Moves in bed and in chair independently and has sufficient muscle strength to lift up completely during move. Maintains good position in bed or chair at all times (03/09/2016 23:46:Trudy Rosado RN) Vu Scale Total: 23 (03/09/2016 23:46:QS system process) Vu Scale Risk: No Risk of Pressure Ulcer Noted at this Time (03/09/2016 23:46:QS system process) Family Support: Family supportive (03/09/2016 23:46:Trudy Rosado RN) Emotional State: Calm/Relaxed (03/09/2016 23:46:Trudy Rosado RN) Call [place] Within Reach: Yes (03/09/2016 23:46:Trudy Rosado RN) Side Rails Up: Yes (03/09/2016 23:46:Trudy Rosado RN) Bed Wheels Locked: Yes (03/09/2016 23:46:Trudy Rosado RN) Arm Bands Present: Yes (03/09/2016 23:46:Trudy Rosado RN) Isolation: [place] (03/09/2016 23:46:Trudy Rosado RN) Fall Risk History of Falling: (0) No (03/09/2016 23:46:Trudy Rosado RN) Fall Risk Secondary Diagnosis: (0) No (03/09/2016 23:46:Trudy Rosado RN) Fall Risk Ambulatory Aid: (0) None/Bedrest/Wheelchair/Nurse Assist (03/09/2016 23:46:Trudy Rosado RN) Fall Risk IV Therapy: (0) No (03/09/2016 23:46:Trudy Rosado RN) Fall Risk Gait: (0) Normal/Bedrest/Immobile (03/09/2016 23:46:Trudy Rosado RN) Fall Risk Mental Status: (0) Oriented to Own Ability (03/09/2016 23:46:Trudy Rosado RN) Fall Risk Score: 0 (03/09/2016 23:46:QS system process) Fall Risk Score Definition: No Risk: No action required (03/09/2016 23:46:QS system process) Recent Exp Communicable Disease: No (03/09/2016 23:46:Trudy Rosado RN) Cough or Fever: No (03/09/2016 23:46:Trudy Rosado RN) Foreign Travel Past 10 Days: No (03/09/2016 23:46:Trudy Rosado RN) Open Wounds or Sores: No (03/09/2016 23:46:Trudy Rosado RN) Prior Antibiotic Resistance Tx: No (03/09/2016 23:46:Trudy Rosdao RN) Cultures Obtained: Not Applicable (03/09/2016 23:46:Trudy Rosado RN) Isolation Initiated: No (03/09/2016 23:46:Trudy Rosado RN) Pt/Family Education: Handwashing Hygiene (03/09/2016 23:46:Trudy Rosado RN) FHR Baseline Rate (bpm) Baby A: 130 (03/10/2016 00:00:Trudy Rosado RN) Variability Baby A: Moderate 6-25 bpm (03/10/2016 00:00:Trudy Rosado RN)
--- NOTE | 2016-03-10 04:46 | L&D Discharge Summary ---
OB Discharge Summary Datetime Report Generated by CPN: 03/10/2016 04:45 DISCHARGE DIAGNOSIS Diagnosis/Symptoms: Other Diagnoses/Symptoms Other: Patient SROM and was transported to [facility] Gestation: 24.3 Number of Babies in Womb: 1 Parity: 3 DIET/ACTIVITY/RESTRICTIONS Diet: Regular Activity: Normal Activity Activity Restrictions: No Exercising; Minimize Walking; No Sexual Activity; Nothing in Vagina - [place], Tampons, [place] TEACHING/INSTRUCTIONS/REFERRALS Instructions Given To: Patient Instructions Understood: Patient Verbalized Understanding Referrals: None Educational Materials- Other: UTI DISCHARGE INFORMATION Discharged AMA: No Discharge Date/Time: 03/10/2016 01:52 Discharged To: Other Discharge Provider Name: Dr. Salas Accompanied By: Self Discharge Method: Stretcher Condition: Stable FOLLOW UP INFORMATION Follow Up With: [facility] Follow Up On: As Scheduled Follow Up Phone Number: [facility] - Comments: Patient SROM and was transported via [facility] to [facility]. GENERAL INSTR-CALL PROVIDER IF: Contractions: Contractions or cramps become more frequent than 8 in one hour or 4 in 20 minutes; Regular painful contractions every 5 minutes or less for one hour. Time your contractions from the beginning of one to the beginning of the next Pressure: Pressure in your vagina or lower abdomen that may feel like the baby is pushing down Period Like Cramps: Period-like cramps or low dull backache that may come and go Cramps/Diarrhea: Abdominal cramps that may be accompanied by diarrhea Gush of Fluid/Blood: Gush of fluid or blood from your vagina (it is normal to have spotting after vaginal exam or intercourse) Vaginal Discharge: Change in the type or amount of vaginal discharge Decreased Movement: Your baby is not moving as much as usual- 4 movements in 1 hour after drinking and resting on side Temperature: Temperature greater than 100.0(F) orally
== END 2016-03-10 01:52 | disposition short-term general hospital (02) ==
LOC: LC 23:18
PROVIDERS: ATTEND Obstetrics & Gynecology
PROC: 4A1HXCZ Monitoring of Products of Conception, Cardiac Rate, External Approach (ICD-10-PCS; principal; 2016-03-09)
DX: O42.912 Preterm premature rupture of membranes, unspecified as to length of time between rupture and onset of labor, second trimester (principal); O26.872 Cervical shortening, second trimester; O23.42 Unspecified infection of urinary tract in pregnancy, second trimester; O09.522 Supervision of elderly multigravida, second trimester; Z3A.25 25 weeks gestation of pregnancy
CPT/HCPCS: 59899; 84112; 81001; 80307; J3475; J0290; J1200; J0702; J2405; J0456

== ENCOUNTER 2016-09-27 14:10 | Emergency (ER) | payer MEDICAID ==
[2016-09-27] MEDS ORDERED: NORMAL SALINE 1000 ML 1,000 ML IV ONE (14:35)
--- NOTE | 2016-09-27 14:38 | ER Document Report ---
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 She had this in the past when her potassium and magnesium were low and when she had Guillain-Goel syndrome. Patient was seen at [facility] last night for shortness of breath and had a negative CTA for PE. When she went to the health department today, she was sent to the ER for further evaluation. PE: 4/5 strength in all 4 extremities. No respiratory distress. RRR. I have greeted and performed a rapid initial assessment of this patient. A comprehensive ED assessment and evaluation of the patient, analysis of test results and completion of the medical decision making process will be conducted by additional ED providers. TRAVEL OUTSIDE OF THE [place] IN LAST 30 DAYS: No - Related Data Allergies/Adverse Reactions: iodine Allergy (Verified 11/22/15 10:14) seafood Allergy (Uncoded 09/27/16 14:21) Past Medical History - Past Medical History Cardiac Medical History: Reports: Hx DVT Renal/ Medical History: Denies: Hx Peritoneal Dialysis GI Medical History: Reports: Hx Gastritis, Hx Gastroesophageal Reflux Disease, Hx Irritable Bowel Musculoskeltal Medical History: Reports Hx Musculoskeletal Trauma Psychiatric Medical History: Reports: Hx Anxiety, Hx Depression, Hx Post Traumatic Stress Disorder Past Surgical History: Reports: Hx Appendectomy, Hx Oral Surgery - Immunizations Hx Diphtheria, Pertussis, Tetanus Vaccination: Yes Physical Exam - Vital signs Vitals: Temp Pulse Resp BP Pulse Ox 98.8 F 86 16 117/73 98 09/27/16 14:21 09/27/16 14:21 09/27/16 14:21 09/27/16 14:21 09/27/16 14:21 Course - Vital Signs Vital signs: Temp Pulse Resp BP Pulse Ox 98.8 F 86 16 117/73 98 09/27/16 14:21 09/27/16 14:21 09/27/16 14:21 09/27/16 14:21 09/27/16 14:21
[2016-09-27 15:29] LABS: ABSOLUTE LYMPHOCYTES (AUTO) 1.1 10^3/uL (0.5-4.7); ABSOLUTE MONOCYTES (AUTO) 0.3 10^3/uL (0.1-1.4); ABSOLUTE NEUT (AUTO) 8.7 10^3/uL (1.7-8.2); BASOPHILS % (AUTO) 0.1 % (0-2); HEMATOCRIT 36.3 % (36.0-47.0); HEMOGLOBIN 12.2 g/dL (12.0-15.5); HGB HCT DIFFERENCE 0.3; LYMPHOCYTES % (AUTO) 11.3 % (13-45); MEAN CORPUSCULAR HEMOGLOBIN 26.8 pg (27.0-33.4); MEAN CORPUSCULAR HGB CONC 33.7 g/dL (32.0-36.0); MEAN CORPUSCULAR VOLUME 80 fl (80-97); MONOCYTES % (AUTO) 2.5 % (3-13); RED BLOOD COUNT 4.57 10^6/uL (3.72-5.28); SEGMENTED NEUTROPHILS % (AUTO) 86.1 % (42-78); WHITE BLOOD COUNT 10.1 10^3/uL (4.0-10.5)
[2016-09-27 15:49] LABS: ALANINE AMINOTRANSFERASE 26 U/L (9-52); ALBUMIN 4.6 g/dL (3.5-5.0); ALKALINE PHOSPHATASE 70 U/L (38-126); ANION GAP 14 (5-19); ASPARTATE AMINO TRANSFERASE 17 U/L (14-36); BILIRUBIN,DIRECT 0.4 mg/dL (0.0-0.4); BILIRUBIN,TOTAL 0.5 mg/dL (0.2-1.3); BLOOD UREA NITROGEN 5 mg/dL (7-20); CALCIUM 10.2 mg/dL (8.4-10.2); CARBON DIOXIDE 21 mmol/L (22-30); CHLORIDE 105 mmol/L (98-107); CREATINE KINASE 39 U/L (30-135); CREATININE RESULT 0.45 mg/dL (0.52-1.25); GLUCOSE 140 mg/dL (75-110); MAGNESIUM 1.9 mg/dL (1.6-2.3); POTASSIUM 4.2 mmol/L (3.6-5.0); SODIUM 139.5 mmol/L (137-145); TOTAL PROTEIN 8.4 g/dL (6.3-8.2)
--- NOTE | 2016-09-27 16:08 | ER Document Report ---
ED Headache - General Chief Complaint: Weakness Stated Complaint: ABDOMINAL PAIN Time Seen by Provider: 09/27/16 14:23 Mode of Arrival: Ambulatory Information source: Patient Notes: 36 yo 12 weeks c/o arms and legs feel weak, pins and needles up both legs from foot to upper calf since 0700, same feeling both hands to lower 3rd of forearms since 0700, last evening head feels like it is going to explode- frontal to posterior occiput 5/5 (no hx migraines), and low pelvic pain with sharpness. No vaginal bleeding. Seen at [facility] last night while visiting , CTA negative, Dilaudid 0.5mg no relieft for AGRAWAL, TV US baby fine. [facility]. Previous AGRAWAL last in last month, born 3 months early at 23 weeks (cerclage). "I have a high tolerance for pain medications) Tylenol not helping. No fever. No runny nose or cough. NO N/V/D. Always constipated. No dysuria. 2009 Gu[place] that started with rash. She does not think it is GBS, similar sx were due to low potassium and magnesium. States she is stressed out. C section march. TRAVEL OUTSIDE OF THE [place] IN LAST 30 DAYS: No - Related Data Allergies/Adverse Reactions: iodine Allergy (Verified 09/27/16 18:13) seafood Allergy (Uncoded 09/27/16 18:13) Past Medical History - General Information source: Patient - Social History Smoking Status: Never Smoker Chew tobacco use (# tins/day): No Frequency of alcohol use: None Drug Abuse: None Lives with: Spouse/Significant other Family History: Reviewed & Not Pertinent, Arthritis, CAD, CVA, DM, Hyperlipidemia, Hypertension, Malignancy Patient has suicidal ideation: No Patient has homicidal ideation: No - Past Medical History Cardiac Medical History: Reports: Hx DVT Renal/ Medical History: Denies: Hx Peritoneal Dialysis GI Medical History: Reports: Hx Gastritis, Hx Gastroesophageal Reflux Disease, Hx Irritable Bowel Musculoskeltal Medical History: Reports Hx Musculoskeletal Trauma Psychiatric Medical History: Reports: Hx Anxiety, Hx Depression, Hx Post Traumatic Stress Disorder Infectious Medical History: Reports: Other - guillian garre syndrome Past Surgical History: Reports: Hx Appendectomy, Hx Oral Surgery - Immunizations Hx Diphtheria, Pertussis, Tetanus Vaccination: Yes Review of Systems - Review of Systems Constitutional: No symptoms reported EENT: No symptoms reported Cardiovascular: No symptoms reported Respiratory: No symptoms reported Gastrointestinal: No symptoms reported Genitourinary: No symptoms reported Female Genitourinary: No symptoms reported Musculoskeletal: See HPI Skin: No symptoms reported Hematologic/Lymphatic: No symptoms reported Neurological/Psychological: See HPI Physical Exam - Vital signs Vitals: Temp Pulse Resp BP Pulse Ox 98.8 F 86 16 117/73 98 09/27/16 14:21 09/27/16 14:21 09/27/16 14:21 09/27/16 14:21 09/27/16 14:21 Interpretation: Normal - General General appearance: Appears well, Alert In distress: None - HEENT Head: Normocephalic, Atraumatic Eyes: Normal Conjunctiva: Normal Extraocular movements intact: Yes Pupils: PERRL Nerve palsy: No Pharynx: Normal Neck: Supple. No: Lymphadenopathy Notes: tender left trapezius muscle to the occipital. - Respiratory Respiratory status: No respiratory distress Chest status: Nontender Breath sounds: Normal Chest palpation: Normal - Cardiovascular Rhythm: Regular Heart sounds: Normal auscultation Murmur: No - Abdominal Inspection: Normal Distension: No distension Bowel sounds: Normal Tenderness: Tender - see below Organomegaly: No organomegaly Notes: mild tender over c section scar which she says she always has - Back Back: Normal, Nontender - Extremities General upper extremity: Normal inspection, Nontender, Normal color, Normal ROM , Normal temperature General lower extremity: Normal inspection, Nontender, Normal color, Normal ROM , Normal temperature, Normal weight bearing. No: Tri's sign - Neurological Neuro grossly intact: Yes Cognition: Normal Orientation: AAOx4 [place] Coma Scale Eye Opening: Spontaneous [place] Coma Scale Verbal: Oriented [place] Coma Scale Motor: Obeys Commands [place] Coma Scale Total: 15 Speech: Normal Motor strength normal: LUE, RUE, LLE, RLE Sensory: Altered light touch - left dorsal hand, but not as bad as it was earlier. - Psychological Associated symptoms: Normal affect, Normal mood - Skin Skin Temperature: Warm Skin Moisture: Dry Skin Color: Normal Skin irregularity: negative: Rash Course - Re-evaluation Re-evalutation: 09/27/16 17:04 FHT 166. 09/27/16 17:07 pt states she is not as weak as she was when she called the ambulance. able to text on phone now. 09/27/16 17:54 Patient states that the Benadryl has not helped the headache. I consulted with , no other category B meds for headache. She states that the dilaudid 0.5 mg IV given at [facility] did not help the headache at all. 09/27/16 18:05 Patient does not want a risk taking a category C medication when I discussed the possible risks to fetus. States she is willing to manage a headache at home. She is already had 3000 mg of Tylenol today and I explained to her that 4000 mg is the absolute maximum per day. 09/27/16 18:38 pt has ride home, wants flexeril now. talked with her at length about the need for recheck on glucose. - Vital Signs Vital signs: Temp Pulse Resp BP Pulse Ox 98.8 F 86 16 117/73 98 09/27/16 14:21 09/27/16 14:21 09/27/16 14:21 09/27/16 14:21 09/27/16 14:21 - Laboratory Result Diagrams: 09/27/16 15:12 09/27/16 15:12 Laboratory results interpreted by me: 09/27/16 09/27/16 09/27/16 15:12 15:12 16:54 MCH 26.8 L RDW 17.0 H Seg Neutrophils % 86.1 H Lymphocytes % 11.3 L Monocytes % 2.5 L Absolute Neutrophils 8.7 H Carbon Dioxide 21 L BUN 5 L Creatinine 0.45 L Glucose 140 H Total Protein 8.4 H Urine Glucose (UA) 150 H Urine Ketones TRACE H Urine Blood MODERATE H Discharge - Discharge Clinical Impression: Hyperglycemia, neck muscle tenderness, Headache Qualifiers: Headache type: tension-type Headache chronicity pattern: acute headache Intractability: not intractable Qualified Code(s): G44.209 - Tension-type headache, unspecified, not intractable Condition: Good Disposition: HOME, SELF-CARE Instructions: Tension Headache ([facility]), ([facility]) Additional Instructions: warm compress to neck muscles see health department for recheck and glucose recheck- since it was 140 today and your history, you need to be checked for gestational diabetes copy of all labs given to you referral to neurology for headaches and the numbness to er if worse Please complete the patient satisfaction survey if you get one, and return it.. If you do not receive a survey, then you can go to the [facility] website, [email or web address] and place your comments about your very good care. Thank you very much. It was a pleasure being your medical provider today. Prescriptions: Cyclobenzaprine HCl [Flexeril 10 Mg Tablet] 10 mg PO TIDP PRN #20 tablet PRN Reason: Referrals: ALEJANDRO HOLDER MD [Primary Care Provider] - Follow up as needed
[2016-09-27] MEDS ORDERED: METOCLOPRAMIDE HCL INJ/PF 10 MG/2 ML SDV IV ONE (16:29)
[2016-09-27] MEDS ORDERED: DIPHENHYDRAMINE HCL 50 MG/ML VIAL IV ONE (16:30)
[2016-09-27 17:25] LABS: APPEARANCE,URINE CLEAR; BILIRUBIN,URINE NEGATIVE (NEGATIVE); GLUCOSE, URINE 150 mg/dL (NEGATIVE); KETONES,URINE TRACE mg/dL (NEGATIVE); LEUKOCYTE ESTERASE,URINE NEGATIVE (NEGATIVE); NITRITE,URINE NEGATIVE (NEGATIVE); PROTEIN,URINE NEGATIVE (NEGATIVE); UROBILINOGEN,URINE NEGATIVE mg/dL (<2.0)
[2016-09-27 18:30] VITALS: BP 102/43
[2016-09-27] MEDS ORDERED: CYCLOBENZAPRINE HCL 10 MG TABLET PO ONE (18:38)
== END 2016-09-27 19:03 | disposition home or self-care (01) ==
LOC: ER 14:10
DX: O26.91 Pregnancy related conditions, unspecified, first trimester (principal); G44.209 Tension-type headache, unspecified, not intractable; R53.1 Weakness; R73.9 Hyperglycemia, unspecified; M79.1 Myalgia; Z3A.12 12 weeks gestation of pregnancy; Z91.013 Allergy to seafood
CPT/HCPCS: 99285; 96361; 96374; 36415; 82550; 83735; 85025; 80053; 81001; J3490; J1200; J7030

== ENCOUNTER 2017-07-18 14:46 | Emergency (ER) | payer SELFPAY ==
[2017-07-18] MEDS ORDERED: PHENAZOPYRIDINE HCL 200 MG TABLET PO ONE (15:47)
--- NOTE | 2017-07-18 15:47 | ER Document Report ---
ED General - General Chief Complaint: Pain With Urination Stated Complaint: URINARY ISSUE Time Seen by Provider: 07/18/17 15:36 Mode of Arrival: Ambulatory Information source: Patient Notes: 37-year-old female presents with complaints of suprapubic pressure pain burning with urination. Patient notes symptoms at this morning feels like his previous UTI denies any fever chills nausea vomiting or diarrhea patient delivered 3 months ago notes she used to get UTIs often throughout the TRAVEL OUTSIDE OF THE U[place] IN LAST 30 DAYS: No - HPI Onset: This morning Onset/Duration: Sudden Quality of pain: Pressure Severity: Moderate Pain Level: 2 Associated symptoms: Other Exacerbated by: Other - Urination Relieved by: Denies Similar symptoms previously: Yes Recently seen / treated by doctor: Yes - Related Data Allergies/Adverse Reactions: iodine Allergy (Verified 07/18/17 14:48) seafood Allergy (Uncoded 07/18/17 14:48) Past Medical History - Social History Smoking Status: Never Smoker Cigarette use (# per day): No Chew tobacco use (# tins/day): No Smoking Education Provided: No Frequency of alcohol use: Rare Drug Abuse: None Family History: Reviewed & Not Pertinent, Arthritis, CAD, CVA, DM, Hyperlipidemia, Hypertension, Malignancy Patient has suicidal ideation: No Patient has homicidal ideation: No - Past Medical History Cardiac Medical History: Reports: Hx DVT Renal/ Medical History: Denies: Hx Peritoneal Dialysis GI Medical History: Reports: Hx Gastritis, Hx Gastroesophageal Reflux Disease, Hx Irritable Bowel Musculoskeltal Medical History: Reports Hx Musculoskeletal Trauma Psychiatric Medical History: Reports: Hx Anxiety, Hx Depression, Hx Post Traumatic Stress Disorder Past Surgical History: Reports: Hx Appendectomy, Hx Oral Surgery - Immunizations Hx Diphtheria, Pertussis, Tetanus Vaccination: Yes Review of Systems - Review of Systems Notes: REVIEW OF SYSTEMS: CONSTITUTIONAL : Denies fever, chills, or sweats. Denies recent illness. EENT: Denies eye, ear, throat, or mouth pain or symptoms. Denies nasal or sinus congestion or discharge. Denies throat, tongue, or mouth swelling or difficulty swallowing. CARDIOVASCULAR: Denies chest pain. Denies palpitations or racing or irregular heart beat. Denies ankle edema. RESPIRATORY: Denies cough, cold, or chest congestion. Denies shortness of breath, difficulty breathing, or wheezing. GASTROINTESTINAL: Admits pressure GENITOURINARY: Admits to difficulty urinating FEMALE GENITOURINARY: Denies vaginal bleeding, heavy or abnormal periods, irregular periods. Denies vaginal discharge or odor. MUSCULOSKELETAL: Denies back or neck pain or stiffness. Denies joint pain or swelling. SKIN: Denies rash, lesions or sores. HEMATOLOGIC : Denies easy bruising or bleeding. LYMPHATIC: Denies swollen, enlarged glands. NEUROLOGICAL: Denies confusion or altered mental status. Denies passing out or loss of consciousness. Denies dizziness or lightheadedness. Denies headache. Denies weakness or paralysis or loss of use of either side. Denies problems with gait or speech. Denies sensory loss, numbness, or tingling. Denies seizures. PSYCHIATRIC: Denies anxiety or stress. Denies depression, suicidal ideation, or homicidal ideation. ALL OTHER SYSTEMS REVIEWED AND NEGATIVE. PHYSICAL EXAMINATION: GENERAL: Well-appearing, well-nourished and in no acute distress. HEAD: Atraumatic, normocephalic. EYES: Pupils equal round and reactive to light, extraocular movements intact, conjunctiva are normal. ENT: Nares patent, oropharynx clear without exudates. Moist mucous membranes. NECK: Normal range of motion, supple without lymphadenopathy LUNGS: Breath sounds clear to auscultation bilaterally and equal. No wheezes rales or rhonchi. HEART: Regular rate and rhythm without murmurs ABDOMEN: Soft, tender in the suprapubic region Female : deferred Musculoskeletal: Normal range of motion, no pitting or edema. No cyanosis. NEUROLOGICAL: Cranial nerves grossly intact. Normal speech, normal gait. Normal sensory, motor exams PSYCH: Normal mood, normal affect. SKIN: Warm, Dry, normal turgor, no rashes or lesions noted. Dictation was performed using [employer] voice recognition software Physical Exam - Vital signs Vitals: Temp Pulse Resp BP Pulse Ox 98.7 F 81 20 126/79 H 99 07/18/17 14:51 07/18/17 14:51 07/18/17 14:51 07/18/17 14:51 07/18/17 14:51 Course - Re-evaluation Re-evalutation: 07/18/17 15:49 Patient has probable UTI, overall looks well, will give Pyridium for systematic relief 07/18/17 17:01 Patient's urinalysis is consistent with a UTI, patient will be placed on antibiotics and is otherwise stable for discharge She has no systemic signs of any life-threatening issues After performing a Medical Screening Examination, I estimate there is LOW risk for ACUTE APPENDICITIS, BOWEL OBSTRUCTION, ACUTE CHOLECYSTITIS, PERFORATED DIVERTICULITIS, INCARCERATED HERNIA, PANCREATITIS, PELVIC INFLAMMATORY DISEASE, PERFORATED ULCER, ECTOPIC , or TUBO-OVARIAN ABSCESS, thus I consider the discharge disposition reasonable. Also, there is no evidence or peritonitis , sepsis, or toxicity. I have reevaluated this patient multiple times and no significant life threatening changes are noted. The patient and I have discussed the diagnosis and risks, and we agree with discharging home with close follow-up with the understanding that symptoms and presentations can change. We also discussed returning to the Emergency Department immediately if new or worsening symptoms occur. We have discussed the symptoms which are most concerning (e.g., bloody stool, fever, changing or worsening pain, vomiting) that necessitate immediate return. - Vital Signs Vital signs: Temp Pulse Resp BP Pulse Ox 98.2 F 78 18 133/83 H 99 07/18/17 16:40 07/18/17 16:40 07/18/17 16:40 07/18/17 16:40 07/18/17 16:40 - Laboratory Laboratory results interpreted by me: 07/18/17 16:00 Urine Protein 100 H Urine Blood MODERATE H Ur Leukocyte Esterase LARGE H Discharge - Discharge Clinical Impression: UTI (urinary tract infection) Qualifiers: Urinary tract infection type: acute cystitis Hematuria presence: without hematuria Qualified Code(s): N30.00 - Acute cystitis without hematuria Condition: Stable Disposition: HOME, SELF-CARE Instructions: Urinary Tract Infection ([facility]) Additional Instructions: Follow up with your physician tomorrow for further care or return to the ED IMMEDIATELY if symptoms worsen or new concerns occur. If you cannot afford to follow up with your primary care physician a list of low cost clinics have been provided at the end of your discharge papers as well. Prescriptions: Ciprofloxacin HCl [Cipro 500 mg Tablet] 500 mg PO BID #10 tablet Phenazopyridine HCl [Pyridium 200 mg Tablet] 200 mg PO TID #9 tablet
[2017-07-18 16:25] LABS: APPEARANCE,URINE CLOUDY; BILIRUBIN,URINE NEGATIVE (NEGATIVE); COLOR,URINE YELLOW; GLUCOSE, URINE NEGATIVE (NEGATIVE); KETONES,URINE NEGATIVE (NEGATIVE); LEUKOCYTE ESTERASE,URINE LARGE (NEGATIVE); NITRITE,URINE NEGATIVE (NEGATIVE); PROTEIN,URINE 100 mg/dL (NEGATIVE); UROBILINOGEN,URINE NEGATIVE mg/dL (<2.0)
[2017-07-18 16:42] VITALS: BP 133/83
== END 2017-07-18 16:40 | disposition home or self-care (01) ==
LOC: ER 14:46
DX: N30.00 Acute cystitis without hematuria (principal); R10.30 Lower abdominal pain, unspecified; R30.9 Painful micturition, unspecified; Z86.718 Personal history of other venous thrombosis and embolism
CPT/HCPCS: 99283; 81025; 81001; J3490

== ENCOUNTER 2017-11-19 11:05 | Emergency (ER) | payer OTHER ==
--- NOTE | 2017-11-19 11:27 | ER Document Report ---
ED Medical Screen (RME) - General Chief Complaint: Upper Abdominal Pain Stated Complaint: BACK PAIN Time Seen by Provider: 11/19/17 11:25 Mode of Arrival: Ambulatory Information source: Patient TRAVEL OUTSIDE OF THE U.S. IN LAST 30 DAYS: No - HPI Patient complains to provider of: back spasms; abdominal pain Onset: Other - pt. has beren having back spasms which recently has gone to her abdominal area causing abd pain. Had recent GB surgery - Related Data Allergies/Adverse Reactions: iodine Allergy (Verified 11/19/17 11:06) seafood Allergy (Uncoded 11/19/17 11:06) Past Medical History - Past Medical History Cardiac Medical History: Reports: Hx DVT Renal/ Medical History: Denies: Hx Peritoneal Dialysis GI Medical History: Reports: Hx Gastritis, Hx Gastroesophageal Reflux Disease, Hx Irritable Bowel Musculoskeltal Medical History: Reports Hx Musculoskeletal Trauma Psychiatric Medical History: Reports: Hx Anxiety, Hx Depression, Hx Post Traumatic Stress Disorder Past Surgical History: Reports: Hx Appendectomy, Hx Oral Surgery - Immunizations Hx Diphtheria, Pertussis, Tetanus Vaccination: Yes Physical Exam - Vital signs Vitals: Temp Pulse Resp BP Pulse Ox 98.7 F 83 14 101/60 97 11/19/17 11:10 11/19/17 11:10 11/19/17 11:10 11/19/17 11:10 11/19/17 11:10 Course - Vital Signs Vital signs: Temp Pulse Resp BP Pulse Ox 98.7 F 83 14 101/60 97 11/19/17 11:10 11/19/17 11:10 11/19/17 11:10 11/19/17 11:10 11/19/17 11:10
[2017-11-19 12:04] LABS: APPEARANCE,URINE CLOUDY; BILIRUBIN,URINE NEGATIVE (NEGATIVE); COLOR,URINE YELLOW; GLUCOSE, URINE NEGATIVE (NEGATIVE); KETONES,URINE NEGATIVE (NEGATIVE); LEUKOCYTE ESTERASE,URINE NEGATIVE (NEGATIVE); NITRITE,URINE NEGATIVE (NEGATIVE); PROTEIN,URINE NEGATIVE (NEGATIVE); URINE SPECIFIC GRAVITY 1.019; UROBILINOGEN,URINE NEGATIVE mg/dL (<2.0)
[2017-11-19 12:05] LABS: ABSOLUTE EOSINOPHILS # (AUTO) 0.2 10^3/uL (0.0-0.6); ABSOLUTE LYMPHOCYTES (AUTO) 1.6 10^3/uL (0.5-4.7); ABSOLUTE MONOCYTES (AUTO) 0.3 10^3/uL (0.1-1.4); ABSOLUTE NEUT (AUTO) 3.5 10^3/uL (1.7-8.2); BASOPHILS % (AUTO) 0.5 % (0-2); EOSINOPHILS % (AUTO) 2.7 % (0-6); HEMATOCRIT 34.7 % (36.0-47.0); HEMOGLOBIN 11.5 g/dL (12.0-15.5); MEAN CORPUSCULAR HEMOGLOBIN 26.2 pg (27.0-33.4); MEAN CORPUSCULAR HGB CONC 33.1 g/dL (32.0-36.0); MEAN CORPUSCULAR VOLUME 79 fl (80-97); MONOCYTES % (AUTO) 5.9 % (3-13); PLATELET COUNT 326 10^3/uL (150-450); RED BLOOD COUNT 4.37 10^6/uL (3.72-5.28); RED CELL DISTRIBUTION WIDTH 15.1 % (11.5-14.0); SEGMENTED NEUTROPHILS % (AUTO) 61.9 % (42-78); TOTAL CELLS COUNTED % (AUTO) 100 %; WHITE BLOOD COUNT 5.7 10^3/uL (4.0-10.5)
--- NOTE | 2017-11-19 12:15 | RADIOLOGY REPORT (SQ) ---
EXAM DESCRIPTION: ACUTE ABDOMEN SERIES COMPLETED DATE/TIME: 11/19/2017 12:04 pm REASON FOR STUDY: abd pain COMPARISON: None. NUMBER OF VIEWS: Three views. TECHNIQUE: PA chest, supine abdomen and upright/decubitus abdomen radiographic images acquired. LIMITATIONS: None. FINDINGS: CHEST: Lungs clear of infiltrates. FREE AIR: None. No abnormal gas collections. BOWEL GAS PATTERN: Few scattered small bowel loops with air fluid levels. No distended large or small bowel loops. CALCIFICATIONS: No suspicious calcifications. HARDWARE: None in the abdomen. SOFT TISSUES: No gross mass or suggestion of organomegaly. BONES: No acute fracture. No worrisome bone lesions. OTHER: No other significant finding. IMPRESSION: NONSPECIFIC BOWEL GAS PATTERN WITHOUT EVIDENCE FOR OBSTRUCTION. TECHNICAL DOCUMENTATION: JOB ID: [id number] [place]-72 2010 [employer]- All Rights Reserved Reading location - IP/workstation name: [email or web address]
[2017-11-19 12:36] LABS: ALANINE AMINOTRANSFERASE 38 U/L (9-52); ALBUMIN 4.4 g/dL (3.5-5.0); ALKALINE PHOSPHATASE 76 U/L (38-126); ANION GAP 11 (5-19); ASPARTATE AMINO TRANSFERASE 31 U/L (14-36); BILIRUBIN,DIRECT 0.3 mg/dL (0.0-0.4); BILIRUBIN,TOTAL 1.4 mg/dL (0.2-1.3); BLOOD UREA NITROGEN 8 mg/dL (7-20); CALCIUM 9.5 mg/dL (8.4-10.2); CARBON DIOXIDE 28 mmol/L (22-30); CHLORIDE 103 mmol/L (98-107); GLUCOSE 97 mg/dL (75-110); LIPASE 85.5 U/L (23-300); POTASSIUM 3.8 mmol/L (3.6-5.0); SODIUM 142.3 mmol/L (137-145); TOTAL PROTEIN 8.1 g/dL (6.3-8.2)
[2017-11-19] MEDS ORDERED: LIDOCAINE 2% VISCOUS SOLN 20 ML UDCUP PO ONE (12:41)
[2017-11-19] MEDS ORDERED: MAG HYDROX/AL HYDROX/SIMETH SUSP 30 ML UDCUP PO ONE (12:41)
--- NOTE | 2017-11-19 13:04 | ER Document Report ---
ED GI/ - General Chief Complaint: Upper Abdominal Pain Stated Complaint: BACK PAIN Time Seen by Provider: 11/19/17 11:25 Mode of Arrival: Ambulatory Information source: Patient Notes: Patient presents complaining of a 3-week history of intermittent back spasms that radiate from her thoracic area around to the upper abdomen. Patient states that she has had these spasms off and on for many months although yesterday the frequency of the spasmodic episodes increased. Patient is 3 weeks status post cholecystectomy. Patient states that she had this pain prior to having her gallbladder out and that this pain is different than the pain she had with her gallbladder. Patient does report nausea and diarrhea x4 episodes. Patient denies any fever or urinary symptoms. Patient did drive here from [place] yesterday and plans to return home in 4 days. Patient does have a follow-up appointment with her surgeon this week and has scheduled a follow-up appointment with her primary doctor next week. Patient states that she saw her primary doctor 4 days ago and was placed on baclofen. Patient states she is attempted to use baclofen as well as Flexeril without improvement of her symptoms. Patient presently denies pain although states that it comes and goes. Patient without any chest pain or shortness of breath. TRAVEL OUTSIDE OF THE U[place] IN LAST 30 DAYS: No - HPI Patient complains to provider of: Abdominal pain, Other - Back pain that radiates around to the abdomen Onset: Other - 3 weeks Timing/Duration: Waxing and waning Quality of pain: Other - Muscle spasm Pain Level: 1 Location: Epigastric, LUQ Vaginal bleeding (Compared to normal period): None Associated symptoms: Diarrhea, Nausea. denies: Chest pain, Dysuria, Fever, Urinary hesitancy, Urinary frequency, Urinary retention, Vomiting Exacerbated by: Denies Relieved by: Denies Similar symptoms previously: Yes Recently seen / treated by doctor: Yes - Related Data Allergies/Adverse Reactions: iodine Allergy (Verified 11/19/17 11:06) seafood Allergy (Uncoded 11/19/17 11:06) Past Medical History - General Information source: Patient - Social History Smoking Status: Never Smoker Frequency of alcohol use: Occasional Drug Abuse: None Lives with: Family Family History: Reviewed & Not Pertinent, Arthritis, CAD, CVA, DM, Hyperlipidemia, Hypertension, Malignancy Patient has suicidal ideation: No Patient has homicidal ideation: No - Medical History Medical History: Other - Cabrera Goel - Past Medical History Cardiac Medical History: Reports: Hx DVT, Other - Rheumatic fever Renal/ Medical History: Denies: Hx Peritoneal Dialysis GI Medical History: Reports: Hx Gastritis, Hx Gastroesophageal Reflux Disease, Hx Irritable Bowel Musculoskeletal Medical History: Reports Hx Fibromyalgia, Reports Hx Musculoskeletal Trauma Psychiatric Medical History: Reports: Hx Anxiety, Hx Depression, Hx Post Traumatic Stress Disorder Past Surgical History: Reports: Hx Appendectomy, Hx Section - x2, Hx Cholecystectomy - 10/31/2017, Hx Oral Surgery - Immunizations Hx Diphtheria, Pertussis, Tetanus Vaccination: Yes Review of Systems - Review of Systems Constitutional: No symptoms reported. denies: Fever, Recent illness EENT: No symptoms reported Cardiovascular: No symptoms reported. denies: Chest pain Respiratory: No symptoms reported. denies: Cough, Short of breath Gastrointestinal: Abdominal pain, Diarrhea, Nausea. denies: Vomiting, Poor appetite Genitourinary: No symptoms reported. denies: Dysuria, Flank pain Female Genitourinary: No symptoms reported. denies: Vaginal discharge Musculoskeletal: Back pain Skin: No symptoms reported Hematologic/Lymphatic: No symptoms reported Neurological/Psychological: No symptoms reported Physical Exam - Vital signs Vitals: Temp Pulse Resp BP Pulse Ox 98.7 F 83 14 101/60 97 11/19/17 11:10 11/19/17 11:10 11/19/17 11:10 11/19/17 11:10 11/19/17 11:10 - General General appearance: Appears well, Alert In distress: None - HEENT Head: Normocephalic, Atraumatic Eyes: Normal Conjunctiva: Normal Nasal: Normal Mouth/Lips: Normal Mucous membranes: Normal Neck: Normal, Supple. No: Lymphadenopathy - Respiratory Respiratory status: No respiratory distress. No: Tachypnea Chest status: Nontender Breath sounds: Normal. No: Rales, Rhonchi, Stridor Chest palpation: Normal - Cardiovascular Rhythm: Regular. No: Tachycardia Heart sounds: S1 appreciated, S2 appreciated - Abdominal Inspection: Morbidly Obese Bowel sounds: Normal Tenderness: Tender - epigastric, LUQ. No: Guarding Organomegaly: No organomegaly - Back Back: Normal, Nontender. No: CVA tenderness - Extremities General upper extremity: Normal inspection, Normal ROM General lower extremity: Normal inspection, Normal ROM. No: Edema - Neurological Rosamaria Coma Scale Eye Opening: Spontaneous Rosamaria Coma Scale Verbal: Oriented Armstrong Coma Scale Motor: Obeys Commands Armstrong Coma Scale Total: 15 Motor strength normal: LUE, RUE, LLE, RLE - Psychological Associated symptoms: Normal affect, Normal mood - Skin Skin Temperature: Warm Skin Moisture: Dry Skin Color: Normal Course - Re-evaluation Re-evalutation: 11/19/17 12:[address] Gutierrez regarding pt presentation and diagnostic evaluation. Patient without any fever, leukocytosis or abnormal vital signs. Patient without any chest pain or dyspnea symptoms. Patient with reproducible epigastric and left upper quadrant abdominal tenderness with palpation. No concern for pulmonary embolus at this time with no hypoxia, tachycardia, chest or respiratory symptoms. Patient insistent that his pain is pain that she has had prior to having her gallbladder out and that she describes it as a muscle spasm-like pain that comes and goes but increased in frequency which prompted her visit today. Patient states she did see her primary doctor for this complaint recently was placed on baclofen, although states that the baclofen has not been helping her symptoms. 11/19/17 13:54 Patient states that in the past she has had pain like this before and that her symptoms were managed with Robaxin. Patient is not requesting any narcotic pain medications at this time. Patient complains of only mild soreness to the epigastric and left upper quadrant area that she states is a result of her previous muscle spasm pain. Patient without any chest pain or dyspnea. Abdomen is otherwise soft nontender without any guarding. Patient presents with abdominal pain without signs of peritonitis or other life-threatening or serious etiology. Patient appears stable for discharge and has been instructed to return immediately if the symptoms worsen in any way for reevaluation. The patient has been instructed to return if the symptoms worsen or change in any way. - Vital Signs Vital signs: Temp Pulse Resp BP Pulse Ox 98.6 F 84 16 118/75 100 11/19/17 14:14 11/19/17 14:14 11/19/17 14:14 11/19/17 14:14 11/19/17 14:14 - Laboratory Result Diagrams: 11/19/17 11:45 11/19/17 11:45 Laboratory results interpreted by me: 11/19/17 11/19/17 11/19/17 11:45 11:45 11:45 Hgb 11.5 L Hct 34.7 L MCV 79 L MCH 26.2 L RDW 15.1 H Total Bilirubin 1.4 H Urine Blood MODERATE H Urine Ascorbic Acid 20 H 11/19/17 13:54 Labs- Entire Visit 11/19/17 11/19/17 11/19/17 11:45 11:45 11:45 WBC 5.7 RBC 4.37 Hgb 11.5 L Hct 34.7 L MCV 79 L MCH 26.2 L MCHC 33.1 RDW 15.1 H Plt Count 326 Seg Neutrophils % 61.9 Lymphocytes % 29.0 Monocytes % 5.9 Eosinophils % 2.7 Basophils % 0.5 Absolute Neutrophils 3.5 Absolute Lymphocytes 1.6 Absolute Monocytes 0.3 Absolute Eosinophils 0.2 Absolute Basophils 0.0 Sodium 142.3 Potassium 3.8 Chloride 103 Carbon Dioxide 28 Anion Gap 11 BUN 8 Creatinine 0.54 Est GFR ( Amer) > 60 Est GFR (Non-Af Amer) > 60 Glucose 97 Calcium 9.5 Magnesium 1.7 Total Bilirubin 1.4 H Direct Bilirubin 0.3 Neonat Total Bilirubin Not Reportable Neonat Direct Bilirubin Not Reportable Neonat Indirect Bili Not Reportable AST 31 ALT 38 Alkaline Phosphatase 76 Total Protein 8.1 Albumin 4.4 Lipase 85.5 Urine Color YELLOW Urine Appearance CLOUDY Urine pH 5.0 Ur Specific [place] 1.019 Urine Protein NEGATIVE Urine Glucose (UA) NEGATIVE Urine Ketones NEGATIVE Urine Blood MODERATE H Urine Nitrite NEGATIVE Urine Bilirubin NEGATIVE Urine Urobilinogen NEGATIVE Ur Leukocyte Esterase NEGATIVE Urine WBC (Auto) 5 Urine RBC (Auto) 7 Urine Bacteria (Auto) TRACE Squamous Epi Cells Auto 22 Urine Mucus (Auto) MANY Urine Ascorbic Acid 20 H Urine HCG, Qual NEGATIVE - Diagnostic Test Radiology reviewed: Image reviewed, Reports reviewed Discharge - Discharge Clinical Impression: Epigastric pain Back pain Qualifiers: Back pain location: thoracic back pain Chronicity: unspecified Back pain laterality: bilateral Qualified Code(s): M54.6 - Pain in thoracic spine Condition: Stable Disposition: HOME, SELF-CARE Instructions: Abdominal Pain ([facility]), Muscle Relaxers ([facility]), Upper Back Strain ( [facility]) Additional Instructions: Return immediately for any new or worsening symptoms Followup with your primary care provider, call tomorrow to make a followup appointment Take the Robaxin or the Flexeril/baclofen, not both medications together. Prescriptions: Methocarbamol [Robaxin 750 mg Tablet] 750 mg PO ASDIR PRN #20 tablet PRN Reason: Referrals: [facility] [Provider Group] - Follow up as needed
[2017-11-19] MEDS ORDERED: METHOCARBAMOL 500 MG TABLET PO ONE (13:54)
[2017-11-19] MEDS ORDERED: LIDOCAINE 5% (700 MG) TRANSDERMAL ADH..PATCH TP ONE (13:54)
[2017-11-19 14:17] VITALS: BP 118/75
== END 2017-11-19 14:17 | disposition home or self-care (01) ==
LOC: ER 11:05
DX: M54.6 Pain in thoracic spine (principal); R10.13 Epigastric pain; R19.7 Diarrhea, unspecified; R11.0 Nausea
CPT/HCPCS: 99284; 36415; 83690; 83735; 85025; 81025; 80053; 81001; 74022; J3490

== ENCOUNTER 2019-11-13 17:20 | Emergency (ER) | payer MEDICAID ==
[2019-11-13 17:31] VITALS: BP 117/63
[2019-11-13] MEDS ORDERED: ONDANSETRON HCL INJ/PF 4 MG/2 ML SDV IV ONE (18:25)
[2019-11-13] MEDS ORDERED: DIPHENHYDRAMINE HCL 50 MG/ML VIAL IV ONE (18:25)
[2019-11-13] MEDS ORDERED: METHYLPREDNISOLONE INJ 125 MG/2 ML SDV IV ONE (18:25)
[2019-11-13] MEDS ORDERED: NORMAL SALINE 1000 ML 1,000 ML IV ONE (18:25)
[2019-11-13] MEDS ORDERED: MORPHINE SULFATE 10 MG/ML INJ IV ONE (18:27)
--- NOTE | 2019-11-13 18:28 | ER Document Report ---
ED Medical Screen (RME) - General Chief Complaint: Abdominal Pain Stated Complaint: ABDOMINAL PAIN Time Seen by Provider: 11/13/19 18:18 TRAVEL OUTSIDE OF THE [place] IN LAST 30 DAYS: No - HPI Notes: 11/13/19 18:26 39 yr old female presents emergency room with right upper quadrant abdominal "burning pain" that started yesterday that has become progressively worse. Patient states worse with eating, worse with sitting up, nothing really makes better. She recently tried this past month with a keto intermittent diet, recently moved from [place] 3 weeks ago to this area. When she was in [place] her doctor did do an abdominal exam and she suspected that she might have a hernia in her right upper quadrant, she is never had this checked out. Last bowel movement was yesterday, no melena. Patient reports she has had a cholecystectomy and an appendectomy done in the past. 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 A comprehensive ED assessment and evaluation of the patient, analysis of test results and completion of the medical decision making process will be conducted by additional ED providers. PHYSICAL EXAMINATION: GENERAL: Well-appearing, well-nourished and in mid distress HEAD: Atraumatic, normocephalic. EYES: Pupils equal round extraocular movements intact, conjunctiva are normal. CV: s1, s2 regular LUNGS: No respiratory distress abd: RUQ abd tenderness, LUQ abd tenderness, no cva tenderness appreciated bilaterally Musculoskeletal: Normal range of motion NEUROLOGICAL: Normal speech, normal gait. SKIN: Warm, Dry, normal turgor, no rashes or lesions noted. 11/13/19 18:27 - Related Data Allergies/Adverse Reactions: iodine Allergy (Verified 11/19/17 11:06) metoclopramide [From Reglan] Allergy (Verified 11/13/19 18:23) seafood Allergy (Uncoded 11/19/17 11:06) Past Medical History - Social History Chew tobacco use (# tins/day): No - Past Medical History Cardiac Medical History: Reports: Hx DVT Renal/ Medical History: Denies: Hx Peritoneal Dialysis GI Medical History: Reports: Hx Gastritis, Hx Gastroesophageal Reflux Disease, Hx Irritable Bowel Musculoskeltal Medical History: Reports Hx Fibromyalgia, Reports Hx Musculoskeletal Trauma Psychiatric Medical History: Reports: Hx Anxiety, Hx Depression, Hx Post Traumatic Stress Disorder Past Surgical History: Reports: Hx Appendectomy, Hx Section - x2, Hx Cholecystectomy - 10/31/2017, Hx Oral Surgery - Immunizations Hx Diphtheria, Pertussis, Tetanus Vaccination: Yes Physical Exam - Vital signs Vitals: Temp Pulse Resp BP Pulse Ox 98.2 F 84 16 117/63 100 11/13/19 17:29 11/13/19 17:29 11/13/19 17:29 11/13/19 17:29 11/13/19 17:29 Course - Vital Signs Vital signs: Temp Pulse Resp BP Pulse Ox 98.2 F 84 16 117/63 100 11/13/19 18:19 11/13/19 17:29 11/13/19 17:29 11/13/19 17:29 11/13/19 17:29
[2019-11-13 18:47] LABS: APPEARANCE,URINE SLIGHTLY-CLOUDY; BILIRUBIN,URINE NEGATIVE (NEGATIVE); COLOR,URINE YELLOW; GLUCOSE, URINE NEGATIVE (NEGATIVE); KETONES,URINE 80 mg/dL (NEGATIVE); LEUKOCYTE ESTERASE,URINE NEGATIVE (NEGATIVE); NITRITE,URINE NEGATIVE (NEGATIVE); PROTEIN,URINE 100 mg/dL (NEGATIVE); URINE SPECIFIC GRAVITY 1.031
[2019-11-13 18:51] LABS: ABSOLUTE EOSINOPHILS # (AUTO) 0.1 10^3/uL (0.0-0.6); ABSOLUTE LYMPHOCYTES (AUTO) 2.2 10^3/uL (0.5-4.7); ABSOLUTE MONOCYTES (AUTO) 0.5 10^3/uL (0.1-1.4); ABSOLUTE NEUT (AUTO) 4.7 10^3/uL (1.7-8.2); BASOPHILS % (AUTO) 0.3 % (0-2); EOSINOPHILS % (AUTO) 0.7 % (0-6); HEMATOCRIT 37.1 % (36.0-47.0); HEMOGLOBIN 12.9 g/dL (12.0-15.5); LYMPHOCYTES % (AUTO) 29.3 % (13-45); MEAN CORPUSCULAR HEMOGLOBIN 28.7 pg (27.0-33.4); MEAN CORPUSCULAR HGB CONC 34.7 g/dL (32.0-36.0); MEAN CORPUSCULAR VOLUME 83 fl (80-97); MONOCYTES % (AUTO) 6.1 % (3-13); PLATELET COUNT 310 10^3/uL (150-450); RED BLOOD COUNT 4.48 10^6/uL (3.72-5.28); RED CELL DISTRIBUTION WIDTH 13.8 % (11.5-14.0); SEGMENTED NEUTROPHILS % (AUTO) 63.6 % (42-78); TOTAL CELLS COUNTED % (AUTO) 100 %; WHITE BLOOD COUNT 7.4 10^3/uL (4.0-10.5)
[2019-11-13 19:08] LABS: ALKALINE PHOSPHATASE 67 U/L (38-126); ANION GAP 13 (5-19); ASPARTATE AMINO TRANSFERASE 47 U/L (14-36); BILIRUBIN,DIRECT 0.3 mg/dL (0.0-0.4); BILIRUBIN,TOTAL 1.9 mg/dL (0.2-1.3); BLOOD UREA NITROGEN 10 mg/dL (7-20); CALCIUM 9.6 mg/dL (8.4-10.2); CARBON DIOXIDE 24 mmol/L (22-30); CHLORIDE 102 mmol/L (98-107); GLUCOSE 93 mg/dL (75-110); POTASSIUM 3.8 mmol/L (3.6-5.0); TOTAL PROTEIN 8.4 g/dL (6.3-8.2)
== END 2019-11-13 23:38 | disposition left against medical advice (07) ==
LOC: ER 17:20
DX: R10.11 Right upper quadrant pain (principal); Z86.718 Personal history of other venous thrombosis and embolism; Z79.82 Long term (current) use of aspirin
CPT/HCPCS: 36415; 80053; 81001; 81025; 83690; 85025; 99281

== ENCOUNTER 2019-12-22 09:59 | Emergency (ER) | payer SELFPAY ==
--- NOTE | 2019-12-22 10:18 | ER Document Report ---
ED Medical Screen (RME) - General Chief Complaint: Chest Pain Stated Complaint: CHEST PAIN Time Seen by Provider: 12/22/19 10:16 Mode of Arrival: Ambulatory Information source: Patient Notes: 39-year-old female presented ED for chest pain with tight feeling hot and cold flashes but no fever headache. She states she does have 3 of rheumatic fever with mitral valve prolapse. She does not smoke she occasionally drinks and does not use any illicit drugs. She is alert oriented respirations regular nonlabored speaking in full sentences. I have greeted and performed a rapid initial assessment of this patient. A comprehensive ED assessment and evaluation of the patient, analysis of test results and completion of medical decision making process will be conducted by an additional ED providers. TRAVEL OUTSIDE OF THE [place] IN LAST 30 DAYS: No - Related Data Allergies/Adverse Reactions: iodine Allergy (Verified 11/19/17 11:06) metoclopramide [From Reglan] Allergy (Verified 11/13/19 18:23) seafood Allergy (Uncoded 11/19/17 11:06) Home Medications: federmine Past Medical History - Social History Frequency of alcohol use: Occasional - Past Medical History Cardiac Medical History: Reports: Hx DVT Renal/ Medical History: Denies: Hx Peritoneal Dialysis GI Medical History: Reports: Hx Gastritis, Hx Gastroesophageal Reflux Disease, Hx Irritable Bowel Musculoskeltal Medical History: Reports Hx Fibromyalgia, Reports Hx Musculoskeletal Trauma Psychiatric Medical History: Reports: Hx Anxiety, Hx Depression, Hx Post Traumatic Stress Disorder Past Surgical History: Reports: Hx Appendectomy, Hx Section - x2, Hx Cholecystectomy - 10/31/2017, Hx Oral Surgery - Immunizations Hx Diphtheria, Pertussis, Tetanus Vaccination: Yes Physical Exam - Vital signs Vitals: Temp Pulse Resp BP Pulse Ox 98.3 F 79 16 124/82 99 12/22/19 10:10 12/22/19 10:10 12/22/19 10:10 12/22/19 10:10 12/22/19 10:10 Course - Vital Signs Vital signs: Temp Pulse Resp BP Pulse Ox 98.3 F 79 16 124/82 99 12/22/19 10:10 12/22/19 10:10 12/22/19 10:10 12/22/19 10:10 12/22/19 10:10
[2019-12-22 10:34] LABS: ABSOLUTE EOSINOPHILS # (AUTO) 0.1 10^3/uL (0.0-0.6); ABSOLUTE LYMPHOCYTES (AUTO) 1.6 10^3/uL (0.5-4.7); ABSOLUTE MONOCYTES (AUTO) 0.3 10^3/uL (0.1-1.4); ABSOLUTE NEUT (AUTO) 2.7 10^3/uL (1.7-8.2); BASOPHILS % (AUTO) 0.6 % (0-2); EOSINOPHILS % (AUTO) 2.5 % (0-6); HEMOGLOBIN 12.8 g/dL (12.0-15.5); LYMPHOCYTES % (AUTO) 34.4 % (13-45); MEAN CORPUSCULAR HEMOGLOBIN 29.2 pg (27.0-33.4); MEAN CORPUSCULAR HGB CONC 33.6 g/dL (32.0-36.0); MEAN CORPUSCULAR VOLUME 87 fl (80-97); MONOCYTES % (AUTO) 6.5 % (3-13); PLATELET COUNT 284 10^3/uL (150-450); RED BLOOD COUNT 4.38 10^6/uL (3.72-5.28); RED CELL DISTRIBUTION WIDTH 17.3 % (11.5-14.0); TOTAL CELLS COUNTED % (AUTO) 100 %; WHITE BLOOD COUNT 4.7 10^3/uL (4.0-10.5)
[2019-12-22 10:50] LABS: ALBUMIN 4.5 g/dL (3.5-5.0); ALKALINE PHOSPHATASE 62 U/L (38-126); ANION GAP 9 (5-19); ASPARTATE AMINO TRANSFERASE 27 U/L (14-36); BILIRUBIN,TOTAL 0.8 mg/dL (0.2-1.3); BLOOD UREA NITROGEN 7 mg/dL (7-20); CALCIUM 9.6 mg/dL (8.4-10.2); CARBON DIOXIDE 28 mmol/L (22-30); CHLORIDE 104 mmol/L (98-107); GLUCOSE 100 mg/dL (75-110); POTASSIUM 4.2 mmol/L (3.6-5.0); TOTAL PROTEIN 7.7 g/dL (6.3-8.2)
--- NOTE | 2019-12-22 10:53 | RADIOLOGY REPORT (SQ) ---
EXAM DESCRIPTION: CHEST 2 VIEWS IMAGES COMPLETED DATE/TIME: 12/22/2019 10:29 am REASON FOR STUDY: Pain tightness history of rheumatic fever and mitr COMPARISON: None. EXAM PARAMETERS: NUMBER OF VIEWS: two views TECHNIQUE: Digital Frontal and Lateral radiographic views of the chest acquired. RADIATION DOSE: NA LIMITATIONS: none FINDINGS: LUNGS AND PLEURA: No opacities, masses or pneumothorax. No pleural effusion. MEDIASTINUM AND HILAR STRUCTURES: No masses or contour abnormalities. HEART AND VASCULAR STRUCTURES: Heart normal size. No evidence for failure. BONES: No acute findings. HARDWARE: None in the chest. OTHER: No other significant finding. IMPRESSION: NO ACUTE RADIOGRAPHIC FINDING IN THE CHEST. TECHNICAL DOCUMENTATION: JOB ID: [id number] 2010 [employer]- All Rights Reserved Reading location - IP/workstation name: [id number]
--- NOTE | 2019-12-22 10:56 | ER Document Report ---
ED General - General Chief Complaint: Chest Pain Stated Complaint: CHEST PAIN Time Seen by Provider: 12/22/19 10:16 Primary Care Provider: DANICA RAZA MD [ACTIVE STAFF] - Follow up in 3-5 days LETICIA GRIGSBY MD [COMMUNITY BASED STAFF] - Follow up in 3-5 days Mode of Arrival: Ambulatory TRAVEL OUTSIDE OF THE [place] IN LAST 30 DAYS: No - HPI Notes: 39-year-old female with a history of Hume Goel in 2008, fibromyalgia in 2014, rheumatic fever in 2009, MVP GERD and DVT presents to the emergency room by private vehicle for substernal chest tightness that started at 5 AM, has been constant without any radiation of pain. Patient states that she has a tight feeling in her chest. Patient states she has a bilateral dull headache, denies worst headache of life. Patient states she recently moved to [place] in November 2019, she is also in school for ENT. She does smoke, she recently started using a drill over the last week and a half. Patient does not take any medication for her GERD. Denies any overt Covid exposure that she is aware of. Last menstrual cycle was 12/18/2019. Denies any vaginal bleeding vaginal discharge, lower back pain. Patient denies any cardiac surgery or history. Denies fevers, chills, ,palpitations, shortness of breath, dyspnea, nausea, vomiting, diarrhea, abdominal pain, hematuria,blurred vision, double vision, loss of vision, speech changes, LH, dizziness, syncope, wheezing, ST, URI, neck pain, weakness, bowel or bladder dysfunction, saddle anesthesia, numbness or tingling in bilateral upper or lower extremities equally, muscle paralysis, weakness in bilateral upper or lower extremities equally or rash - Related Data Allergies/Adverse Reactions: iodine Allergy (Verified 11/19/17 11:06) metoclopramide [From Reglan] Allergy (Verified 11/13/19 18:23) seafood Allergy (Uncoded 11/19/17 11:06) Home Medications: federmine Past Medical History - General Information source: Patient - Social History Smoking Status: Never Smoker Frequency of alcohol use: Occasional Family History: Reviewed & Not Pertinent, Arthritis, CAD, CVA, DM, Hyperlipidemia, Hypertension, Malignancy - Past Medical History Cardiac Medical History: Reports: Hx DVT Renal/ Medical History: Denies: Hx Peritoneal Dialysis GI Medical History: Reports: Hx Gastritis, Hx Gastroesophageal Reflux Disease, Hx Irritable Bowel Musculoskeletal Medical History: Reports Hx Fibromyalgia, Reports Hx Musculoskeletal Trauma Psychiatric Medical History: Reports: Hx Anxiety, Hx Depression, Hx Post Traumatic Stress Disorder Past Surgical History: Reports: Hx Appendectomy, Hx Section - x2, Hx Cholecystectomy - 10/31/2017, Hx Oral Surgery - Immunizations Hx Diphtheria, Pertussis, Tetanus Vaccination: Yes Review of Systems - Review of Systems Constitutional: No symptoms reported EENT: No symptoms reported Cardiovascular: See HPI Respiratory: No symptoms reported Gastrointestinal: No symptoms reported Genitourinary: No symptoms reported Female Genitourinary: No symptoms reported Musculoskeletal: No symptoms reported Skin: No symptoms reported Hematologic/Lymphatic: No symptoms reported Neurological/Psychological: No symptoms reported Physical Exam - Vital signs Vitals: Temp Pulse Resp BP Pulse Ox 98.3 F 79 16 124/82 99 12/22/19 10:10 12/22/19 10:10 12/22/19 10:10 12/22/19 10:10 12/22/19 10:10 - Notes Notes: MEDICATIONS: I agree with the patient medications as charted by the RN. ALLERGIES: I agree with the allergies as charted by the RN. PAST MEDICAL HISTORY/PAST SURGICAL HISTORY: Reviewed and agree as charted by RN. SOCIAL HISTORY: Reviewed and agree as charted by RN. FAMILY HISTORY: No significant familial comorbid conditions directly related to patient complaint EXAM: Reviewed vital signs as charted by RN. PHYSICAL EXAMINATION: reviewed vital signs by RN GENERAL: Well-appearing, well-nourished and in no acute distress. HEAD: Atraumatic, normocephalic. EYES: Pupils equal round and reactive to light, extraocular movements intact, conjunctiva are normal. ENT: Nares patent, oropharynx clear without exudates. Moist mucous membranes. NECK: Normal range of motion, supple without lymphadenopathy LUNGS: Breath sounds clear to auscultation bilaterally and equal. No wheezes rales or rhonchi. HEART: Regular rate and rhythm without murmurs ABDOMEN: Soft, nontender, nondistended abdomen. No guarding, no rebound. No masses appreciated. Female : deferred Musculoskeletal: Normal range of motion, no pitting or edema. No cyanosis. NEUROLOGICAL: Cranial nerves grossly intact. Normal speech, normal gait. Normal sensory, motor exams. PERRLA, EOMI. Full motor and sensory function throughout. Computer Trainer + 2 equal bilaterally in BUE. Tongue midline. No pronator drift. No ataxia. Neck with APROM. Raises eyebrows. Strength is 5 out of 5 in bilateral upper and lower extremities equally.Speaks in full sentences. No weakness on one side. Romberg gait steady able to walk straight line. PSYCH: Normal mood, normal affect. SKIN: Warm, Dry, normal turgor, no rashes or lesions noted. Course - Re-evaluation Re-evalutation: 12/22/19 14:38 Afebrile vital stable no distress. Nurses notes negative. Chest x-ray unremarkable. CBC negative for leukocytosis or anemia, CMP negative for hepatic or renal dysfunction, no electrolyte disturbances, troponins x2 negative. EKG negative for STEMI, no ST segment elevations. HEART Score is 0.9 to 1.7% for acute myocardial infarction. Patient found some relief with GI cocktail. She states she did have a headache, IV fluids were given as well as Benadryl and Zofran. Patient denies worst headache of life. 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 On reevaluation patient states she is feeling much better. advised to follow-up with cardiology as well as primary care provider within the next 24 to 48 hours. After performing a Medical Screening Examination, I estimate there is LOW risk for RUPTURED ESOPHAGUS, PNEUMOTHORAX, PULMONARY EMBOLISM, ACUTE CORONARY SYNDROME, OR THORACIC AORTIC DISSECTION, thus I consider the discharge disposition reasonable. I have reevaluated this patient multiple times and no significant life threatening changes are noted. The patient and I have discussed the diagnosis and risks, and we agree with discharging home with close follow- up. We also discussed returning to the Emergency Department immediately if new o r worsening symptoms occur. We have discussed the symptoms which are most concerning (e.g., bloody sputum, worsening pain or shortness of breath) that necessitate immediate return. 12/22/19 15:45 - Vital Signs Vital signs: Temp Pulse Resp BP Pulse Ox 98.0 F 79 17 135/75 H 100 12/22/19 15:01 12/22/19 10:10 12/22/19 15:01 12/22/19 15:01 12/22/19 15:01 - Laboratory Result Diagrams: 12/22/19 10:22 12/22/19 10:22 Laboratory results interpreted by me: 12/22/19 10:22 RDW 17.3 H - EKG Interpretation by Me EKG shows normal: Sinus rhythm Rate: Normal Rhythm: NSR Additional EKG results interpreted by me: 12/22/19 14:45 EKG HR 75, T axis 52, QRS -9, T -22. no st segment elevation, no STEMI. interpreted by er supervising. Discharge - Discharge Clinical Impression: Chest pain Qualifiers: Chest pain type: unspecified Qualified Code(s): R07.9 - Chest pain, unspecified Condition: Stable Disposition: HOME, SELF-CARE Instructions: Chest Pain of Unclear Cause ([facility]), Prilosec (Acid Pump Inhibitor) ([facility]) Additional Instructions: All of your lab work was normal, your EKG as well as your cardiac enzymes were normal today. You were given some IV fluids, Toradol, and a GI cocktail without Reglan. It is advised that you follow-up with a refund specialist as well as a primary care provider within the next 3 to 5 days or sooner if needed. If you experience any worsening symptoms such as shortness of breath, chest pain, vomiting please return to the emergency room. Return immediately for any new or worsening symptoms. Follow up with primary care provider, call tomorrow to make followup appointment. Prescriptions: Omeprazole 20 mg PO BID #40 capsule. Referrals: DANICA RAZA MD [ACTIVE STAFF] - Follow up in 3-5 days LETICIA GRIGSBY MD [COMMUNITY BASED STAFF] - Follow up in 3-5 days
[2019-12-22] MEDS ORDERED: LIDOCAINE 2% VISCOUS SOLN 15 ML UDCUP PO ONE (12:06)
[2019-12-22] MEDS ORDERED: MAG HYDROX/AL HYDROX/SIMETH SUSP 30 ML UDCUP PO ONE (12:06)
[2019-12-22] MEDS ORDERED: NORMAL SALINE 1000 ML 1,000 ML IV ONE (13:28)
[2019-12-22] MEDS ORDERED: DIPHENHYDRAMINE HCL 50 MG/ML VIAL IV ONE (14:34)
[2019-12-22] MEDS ORDERED: KETOROLAC TROMETHAMINE INJ/PF 30 MG/1 ML SDV IV ONE (14:34)
[2019-12-22 15:33] VITALS: BP 135/75
--- NOTE | 2019-12-23 09:05 | EKG REPORT ---
SEVERITY:- NORMAL ECG - SINUS RHYTHM : Confirmed by: Elissa Mitchell 23-Dec-2019 09:04:57
== END 2019-12-22 15:06 | disposition home or self-care (01) ==
LOC: ER 09:59
DX: R07.9 Chest pain, unspecified (principal); Z88.8 Allergy status to other drugs, medicaments and biological substances
CPT/HCPCS: 93005; 99285; 96361; 96374; 96375; 36415; 83735; 85025; 80053; 84484; 71046; 93010; J1200; J3490; J1885; J7030

== ENCOUNTER 2020-01-17 08:51 | Emergency (ER) | payer MEDICAID ==
[2020-01-17] MEDS ORDERED: MORPHINE SULFATE 10 MG/ML INJ IV ONE ×2 (09:55→12:36)
[2020-01-17] MEDS ORDERED: ONDANSETRON HCL INJ/PF 4 MG/2 ML SDV IV ONE ×2 (09:55→12:36)
[2020-01-17 09:59] LABS: ABSOLUTE EOSINOPHILS # (AUTO) 0.1 10^3/uL (0.0-0.6); ABSOLUTE LYMPHOCYTES (AUTO) 1.1 10^3/uL (0.5-4.7); ABSOLUTE MONOCYTES (AUTO) 0.4 10^3/uL (0.1-1.4); ABSOLUTE NEUT (AUTO) 6.3 10^3/uL (1.7-8.2); BASOPHILS % (AUTO) 0.4 % (0-2); HEMATOCRIT 40.5 % (36.0-47.0); HEMOGLOBIN 13.9 g/dL (12.0-15.5); MEAN CORPUSCULAR HEMOGLOBIN 29.7 pg (27.0-33.4); MEAN CORPUSCULAR HGB CONC 34.3 g/dL (32.0-36.0); MEAN CORPUSCULAR VOLUME 87 fl (80-97); MONOCYTES % (AUTO) 5.3 % (3-13); PLATELET COUNT 266 10^3/uL (150-450); RED BLOOD COUNT 4.67 10^6/uL (3.72-5.28); RED CELL DISTRIBUTION WIDTH 16.8 % (11.5-14.0); SEGMENTED NEUTROPHILS % (AUTO) 79.3 % (42-78); TOTAL CELLS COUNTED % (AUTO) 100 %; WHITE BLOOD COUNT 7.9 10^3/uL (4.0-10.5)
--- NOTE | 2020-01-17 10:04 | ER Document Report ---
ED GI/ - General Chief Complaint: Flank Pain Stated Complaint: FLANK PAIN Time Seen by Provider: 01/17/20 09:28 Primary Care Provider: [facility] [Provider Group] - Follow up as needed TRAVEL OUTSIDE OF THE [place].S[place] IN LAST 30 DAYS: No - HPI Notes: Patient is a 39 y/o female with a hx of pyelonephritis who presents with left flank pain that began yesterday. Patient states her pain is worsening and now radiating to her left lower quadrant. She reports nausea, vomiting, diarrhea but denies fever, dysuria, hematuria, chest pain, and shortness of breath. She states she had pyelonephritis a year ago and that her pain today is very similar. She states she took a dose of Zofran last night which helped her nausea. Patient has a history of cholecystectomy, appendectomy, fibromyalgia, RA, and Guillain-Goel. Patient denies tobacco use. - Related Data Allergies/Adverse Reactions: iodine Allergy (Verified 01/17/20 12:35) metoclopramide [From Reglan] Allergy (Verified 01/17/20 12:35) seafood Allergy (Uncoded 01/17/20 12:35) Home Medications: phetermine, biotin, vit d Past Medical History - General Information source: Patient - Social History Smoking Status: Former Smoker Frequency of alcohol use: Rare Drug Abuse: None Family History: Reviewed & Not Pertinent, Arthritis, CAD, CVA, DM, Hyperlipidemi a, Hypertension, Malignancy Patient has homicidal ideation: No - Past Medical History Cardiac Medical History: Reports: Hx DVT Renal/ Medical History: Denies: Hx Peritoneal Dialysis GI Medical History: Reports: Hx Gastritis, Hx Gastroesophageal Reflux Disease, Hx Irritable Bowel Musculoskeletal Medical History: Reports Hx Fibromyalgia, Reports Hx Musculoske letal Trauma Psychiatric Medical History: Reports: Hx Anxiety, Hx Depression, Hx Post Traumatic Stress Disorder Past Surgical History: Reports: Hx Appendectomy, Hx Section - x2, Hx Cholecystectomy - 10/31/2017, Hx Oral Surgery - Immunizations Hx Diphtheria, Pertussis, Tetanus Vaccination: Yes Review of Systems - Review of Systems Constitutional: No symptoms reported EENT: No symptoms reported Cardiovascular: No symptoms reported Respiratory: No symptoms reported Gastrointestinal: See HPI Genitourinary: See HPI Female Genitourinary: No symptoms reported Musculoskeletal: No symptoms reported Skin: No symptoms reported Hematologic/Lymphatic: No symptoms reported Neurological/Psychological: No symptoms reported Physical Exam - Vital signs Vitals: Temp Pulse Resp BP Pulse Ox 98.1 F 86 16 117/77 98 01/17/20 08:59 01/17/20 08:59 01/17/20 08:59 01/17/20 08:59 01/17/20 08:59 - Notes Notes: PHYSICAL EXAMINATION: VITALS: Vitals reviewed and within normal limits. GENERAL: Well-appearing, well-nourished and in no acute distress. HEAD: Atraumatic, normocephalic. EYES: Pupils equal, round, and reactive to light, extraocular movements intact, sclera anicteric, conjunctiva are normal. ENT: Nares patent. Moist mucous membranes. Oropharynx clear without exudates. NECK: Normal range of motion, supple without lymphadenopathy. LUNGS: Breath sounds clear to auscultation bilaterally and equal. No wheezes, rales, or rhonchi. HEART: Regular, rate, and rhythm without murmurs. ABDOMEN: Soft, nontender, normoactive bowel sounds. Left CVA tenderness. No guarding, no rebound. No masses appreciated. EXTREMITIES: Normal range of motion, no pitting or edema. No cyanosis. NEUROLOGICAL: No focal neurological deficits. Moves all extremities spontaneously and on command. PSYCH: Normal mood, normal affect. SKIN: Warm, Dry, normal turgor, no rashes or lesions noted. Course - Re-evaluation Re-evalutation: Patient is a 39 y/o female with a hx of pyelonephritis who presents with left flank pain that began yesterday. Vital signs are within normal limits. On exam, left CVA tenderness, abdominal exam is benign without any focal tenderness. CBC and CMP are unremarkable and within normal limits. UA shows moderate blood. I consulted my supervising physician, Dr. Atwood, concerning this patient and he recommends ordering CT abd/pelvis without contrast to rule out kidney stone. CT abd/pelvis is negative for any significant or acute process in the abdomen and pelvis. Dr. Atwood informed of CT results and he recommends having the patient follow up with her primary care provider concerning her symptoms. Laboratories are unremarkable without evidence of cystitis, , or leukocytosis. Patient is overall very well in appearance. Based on clinical history and examination I do not suspect an acute appendicitis, tubo-ovarian abscess, related pathology, pelvic inflammatory disease, mesenteric ischemia, or pyelonephritis. Will discharge home with return precautions and followup recommendations. Prescription given for 800mg ibuprofen per patient's request. She understands and is in agreement with the plan. - Vital Signs Vital signs: Temp Pulse Resp BP Pulse Ox 98.1 F 86 14 118/71 100 01/17/20 08:59 01/17/20 08:59 01/17/20 12:45 01/17/20 12:45 01/17/20 12:45 - Laboratory Results Result Diagrams: 01/17/20 09:40 01/17/20 09:40 Laboratory Results Interpreted: 01/17/20 01/17/20 09:40 09:40 RDW 16.8 H Seg Neutrophils % 79.3 H Urine Ketones TRACE H Urine Blood MODERATE H Ur Leukocyte Esterase TRACE H Critical Laboratory Results Reviewed: No Critical Results - Radiology Results Critical Radiology Results Reviewed: No Critical Results Discharge - Discharge Clinical Impression: Flank pain, Nausea Abdominal pain Qualifiers: Abdominal location: left lower quadrant Qualified Code(s): R10.32 - Left lower quadrant pain Condition: Stable Disposition: HOME, SELF-CARE Instructions: Abdominal Pain ([facility]) Prescriptions: Ondansetron [Zofran Odt 4 mg Tablet] 1 - 2 tab PO Q4HP PRN #15 tab.rapdis PRN Reason: Ibuprofen [Motrin 800 mg Tablet] 800 mg PO Q8H PRN #30 tab PRN Reason: Referrals: [facility] [Provider Group] - Follow up as needed
[2020-01-17 10:08] LABS: APPEARANCE,URINE SLIGHTLY-CLOUDY; BILIRUBIN,URINE NEGATIVE (NEGATIVE); COLOR,URINE YELLOW; GLUCOSE, URINE NEGATIVE (NEGATIVE); KETONES,URINE TRACE mg/dL (NEGATIVE); LEUKOCYTE ESTERASE,URINE TRACE (NEGATIVE); NITRITE,URINE NEGATIVE (NEGATIVE); PROTEIN,URINE NEGATIVE (NEGATIVE); URINE SPECIFIC GRAVITY 1.019; UROBILINOGEN,URINE NEGATIVE mg/dL (<2.0)
[2020-01-17 10:20] LABS: ALBUMIN 4.5 g/dL (3.5-5.0); ALKALINE PHOSPHATASE 60 U/L (38-126); ANION GAP 8 (5-19); ASPARTATE AMINO TRANSFERASE 22 U/L (14-36); BILIRUBIN,TOTAL 0.8 mg/dL (0.2-1.3); BLOOD UREA NITROGEN 9 mg/dL (7-20); CALCIUM 9.6 mg/dL (8.4-10.2); CARBON DIOXIDE 26 mmol/L (22-30); CHLORIDE 104 mmol/L (98-107); GLUCOSE 100 mg/dL (75-110); POTASSIUM 3.6 mmol/L (3.6-5.0); TOTAL PROTEIN 7.7 g/dL (6.3-8.2)
[2020-01-17] MEDS ORDERED: NORMAL SALINE 1000 ML 1,000 ML IV ONE (11:24)
--- NOTE | 2020-01-17 11:29 | RADIOLOGY REPORT (SQ) ---
EXAM DESCRIPTION: CT ABD/PELVIS NO ORAL OR IV IMAGES COMPLETED DATE/TIME: 01/17/2020 10:45 am REASON FOR STUDY: left flank pain COMPARISON: None. TECHNIQUE: CT scan of the abdomen and pelvis performed without intravenous or oral contrast. Images reviewed with lung, soft tissue, and bone windows. Reconstructed coronal and sagittal MPR images revi ewed. All images stored on PACS. All CT scanners at this facility use dose modulation, iterative reconstruction, and/or weight based d osing when appropriate to reduce radiation dose to as low as reasonably achievable (ALARA). [facility]: Dose Right [facility]: CareDose [facility]: Dose Right [facility]: Teradose 4D [facility]: Noteleaf RADIATION DOSE: CT Rad equipment meets quality standard of care and radiation dose reduction techniq ues were employed. CTDIvol: 8.4 mGy. DLP: 464 mGy-cm.mGy. LIMITATIONS: None. FINDINGS: LOWER CHEST: No significant findings. No nodules or infiltrates. NON-CONTRASTED LIVER, SPLEEN, ADRENALS: Evaluation limited by lack of IV contrast. No identified sign ificant masses. PANCREAS: No masses. No peripancreatic inflammatory changes. GALLBLADDER: Surgically absent. RIGHT KIDNEY AND URETER: No suspicious masses. Assessment limited by lack of IV contrast. No signif icant calcifications. No hydronephrosis or hydroureter. LEFT KIDNEY AND URETER: No suspicious masses. Assessment limited by lack of IV contrast. No signifi cant calcifications. No hydronephrosis or hydroureter. AORTA AND RETROPERITONEUM: No aneurysm. No retroperitoneal masses or adenopathy. BOWEL AND PERITONEAL CAVITY: No obvious masses or inflammatory changes. No free fluid. APPENDIX: Normal. PELVIS, BLADDER, AND ABDOMINAL WALL:No abnormal masses. No free fluid. Bladder normal. BONES: No significant findings. OTHER: No other significant finding. IMPRESSION: NO SIGNIFICANT OR ACUTE PROCESS IN THE ABDOMEN OR PELVIS. COMMENT: Quality ID # [id number]: Final reports with documentation of one or more dose reduction techniques (e.g., Automated exposure control, adjustment of the mA and/or kV according to patient size, use of iterative reconstruction technique) TECHNICAL DOCUMENTATION: JOB ID: [id number] 2010 [employer]- All Rights Reserved Reading location - IP/workstation name: [email or web address]
[2020-01-17 12:53] VITALS: BP 118/71
== END 2020-01-17 13:00 | disposition home or self-care (01) ==
LOC: ER 08:51
DX: R10.9 Unspecified abdominal pain (principal); R10.32 Left lower quadrant pain; R11.0 Nausea; R31.9 Hematuria, unspecified; Z87.440 Personal history of urinary (tract) infections; Z90.49 Acquired absence of other specified parts of digestive tract; Z79.899 Other long term (current) drug therapy; Z87.891 Personal history of nicotine dependence; Z88.8 Allergy status to other drugs, medicaments and biological substances; Z91.013 Allergy to seafood
CPT/HCPCS: 96376; 99285; 96361; 96374; 96375; 36415; 83690; 84703; 85025; 80053; 81001; 74176; J2270; J2405; J7030

== ENCOUNTER 2020-02-13 08:42 | Emergency (ER) | payer MEDICAID, OTHER ==
[2020-02-13] MEDS ORDERED: KETOROLAC TROMETHAMINE INJ/PF 30 MG/1 ML SDV IV ONE (11:26)
--- NOTE | 2020-02-13 12:04 | ER Document Report ---
ED General - General Chief Complaint: Hip Pain Stated Complaint: CHEST PAIN, HIP PAIN Time Seen by Provider: 02/13/20 11:21 TRAVEL OUTSIDE OF THE [place] IN LAST 30 DAYS: No - HPI Notes: Chief complaint: Left hip and lower back pain History of present illness: 39-year-old female presents for evaluation of left hip and lower back pain which developed after she fell and struck her left hip against the arm of a couch at home while playing with one of her children about 3 days ago. She was initially able to bear weight but says she can no longer bear weight now and the pain is becoming much worse. She denies any visible swelling. States that she is not on any regular medications. She is allergic to metoclopramide. - Related Data Allergies/Adverse Reactions: iodine Allergy (Verified 01/17/20 12:35) metoclopramide [From Reglan] Allergy (Verified 01/17/20 12:35) seafood Allergy (Uncoded 01/17/20 12:35) Past Medical History - General Information source: Patient - Social History Smoking Status: Never Smoker Frequency of alcohol use: Rare Drug Abuse: None Lives with: Family Family History: Reviewed & Not Pertinent, Arthritis, CAD, CVA, DM, Hyperlipidemia, Hypertension, Malignancy Patient has homicidal ideation: No - Past Medical History Cardiac Medical History: Reports: Hx DVT Renal/ Medical History: Denies: Hx Peritoneal Dialysis GI Medical History: Reports: Hx Gastritis, Hx Gastroesophageal Reflux Disease, Hx Irritable Bowel Musculoskeletal Medical History: Reports Hx Fibromyalgia, Reports Hx Musculoskeletal Trauma Psychiatric Medical History: Reports: Hx Anxiety, Hx Depression, Hx Post Traumatic Stress Disorder Past Surgical History: Reports: Hx Appendectomy, Hx Section - x2, Hx Cholecystectomy - 10/31/2017, Hx Oral Surgery - Immunizations Hx Diphtheria, Pertussis, Tetanus Vaccination: Yes Review of Systems - Review of Systems Notes: Constitutional: Negative for fever. HENT: Negative for sore throat. Eyes: Negative for visual changes. Cardiovascular: Negative for chest pain. Respiratory: Negative for shortness of breath. Gastrointestinal: Negative for abdominal pain, vomiting or diarrhea. Genitourinary: Negative for dysuria. Musculoskeletal: As per HPI. Skin: Negative for rash. Neurological: Negative for headaches, weakness or numbness. 10 point ROS negative except as marked above and in HPI. Physical Exam - Vital signs Vitals: Pulse Resp BP Pulse Ox 90 16 114/68 100 02/13/20 08:55 02/13/20 08:55 02/13/20 08:55 02/13/20 08:55 - Notes Notes: GENERAL: Well-developed well-nourished female approximately stated age appearing in moderate pain. SKIN: Good turgor no rashes. HEAD: Normocephalic atraumatic. EYES: PERRLA. EOMI. Conjunctivae and sclerae clear. EARS: CANALS AND TMS CLEAR. NOSE: CLEAR. MOUTH: Moist mucosa. Good dentition. No stridor or edema. No drooling. NECK: Supple. No masses or thyromegaly. No adenopathy. Carotids 2+ without bruits. No JVD. BACK: Symmetrical without tenderness. CHEST: Respirations unlabored. Breath sounds clear and symmetrical. HEART: Regular rhythm. No murmur gallop or rub. ABDOMEN: Soft nontender without masses, organomegaly or rebound. Bowel sounds normally active. No bruits. GENITALIA: Deferred. EXTREMITIES: There is no abnormal shortening or rotation of the left lower ext remity. She is moderately tender over the posterior lateral aspect of the left hip. She complains of severe pain with any attempts of active or passive movement of the left hip. She is also tender in her left flank area. No visible ecchymoses. She is unable to bear weight due to pain in her left hip and left flank area. No edema. No calf tenderness. Cap refill less than 1.5 seconds. Dorsalis pedis and posterior tibial pulses 3+ and symmetrical. NEUROLOGICAL: GCS 15. Alert and oriented x3. Fluent speech. Cranial nerves II through XII intact. Sensorimotor and cerebellar normal. Normal tone. PSYCHIATRIC: Appropriate affect. Course - Re-evaluation Re-evalutation: 02/13/20 16:35 Plain films of the lumbar spine and left hip negative for fracture or dislocation per radiologist. IV Toradol provided little relief of pain. She subsequently got fentanyl IV. We note that the patient has a past history of DVT. I got a Doppler ultrasound left lower extremity and there was no evidence of DVT per radiologist. I think she probably has a sciatica. She subsequently got some oral Percocet. I also gave her a dose of IV Decadron. Findings, clinical impression and plan of treatment have been discussed with patient/family. Understanding of current findings and recommendations has been acknowledged by them and there is agreement regarding disposition and follow-up. - Vital Signs Vital signs: Temp Pulse Resp BP Pulse Ox 98.2 F 90 16 116/79 99 02/13/20 10:10 02/13/20 08:55 02/13/20 16:00 02/13/20 14:01 02/13/20 16:00 - Laboratory Results Result Diagrams: 02/13/20 10:15 02/13/20 10:15 Laboratory Results Interpreted: 02/13/20 02/13/20 10:15 14:48 Hct 34.7 L RDW 15.5 H Urine Blood SMALL H Critical Laboratory Results Reviewed: No Critical Results - Radiology Results Radiology Results Interpreted: 02/13/20 16:35 Hip X-Ray 02/13/20 11:27 IMPRESSION: NEGATIVE STUDY OF THE LEFT HIP AND PELVIS. NO RADIOGRAPHIC EVIDENCE OF ACUTE INJURY. Lumbar Spine X-Ray 02/13/20 11:28 IMPRESSION: No radiographic abnormality of the lumbar spine. Venous Doppler Study 02/13/20 13:08 IMPRESSION: NO EVIDENCE OF DVT OR SVT IN THE LEFT LEG. Critical Radiology Results Reviewed: No Critical Results Discharge - Discharge Clinical Impression: Sciatica Qualifiers: Laterality: left Qualified Code(s): M54.32 - Sciatica, left side Condition: Stable Disposition: HOME, SELF-CARE Additional Instructions: Sciatica Your symptoms suggest "sciatica." The pain of sciatica typically radiates down the leg. Numbness in the foot or calf may also occur. Sciatica is caused by irritation of the sciatic nerve or its branches. The irritation can be due to a herniated disk in the spine, swelling and inflammation in the muscles surrounding the sciatic nerve, or direct injury of the nerve itself. Most cases of sciatica will resolve with medical treatment. Bed rest is usu ally recommended initially. Surgery is only necessary when the condition will not improve with rest and antiinflammatory medication. Muscle relaxers are often given if muscle soreness is present. A CAT scan of the back may be performed if a herniated disk is suspected. Re-examination is necessary if you develop increasing numbness, localized weakness in the foot or ankle, or if the pain does not respond to rest. Return here as needed for new or worsening symptoms: Pain that is worsening or unimproved Uncontrolled vomiting High fever or shaking chills Overall worsening Take prescribed medications as directed. Follow-up with your primary care physician next 3 to 5 days. Prescriptions: Prednisone [Deltasone 20 mg Tablet] 2 tab PO DAILY 5 Days tablet Oxycodone HCl/Acetaminophen [Percocet 5-325 mg Tablet] 1 tab PO Q6H PRN #15 tablet PRN Reason:
--- NOTE | 2020-02-13 12:48 | RADIOLOGY REPORT (SQ) ---
EXAM DESCRIPTION: L SPINE WHOLE IMAGES COMPLETED DATE/TIME: 02/13/2020 11:27 am REASON FOR STUDY: trauma COMPARISON: None. NUMBER OF VIEWS: Five views including obliques. TECHNIQUE: AP, lateral, oblique, and sacral radiographic images acquired of the lumbar spine. LIMITATIONS: None. FINDINGS: MINERALIZATION: Normal. SEGMENTATION: Normal. No transitional anatomy. ALIGNMENT: Normal. VERTEBRAE: Maintained height. No fracture or worrisome bone lesion. DISCS: Preserved height. No significant osteophytes or end plate irregularity. POSTERIOR ELEMENTS: Pedicles and facets are intact. No pars defect or posterior arch defects. HARDWARE: None in the spine. PARASPINAL SOFT TISSUES: Normal. PELVIS: Intact as visualized. No fractures or worrisome bone lesions. SI joints intact. OTHER: No other significant finding. IMPRESSION: No radiographic abnormality of the lumbar spine. TECHNICAL DOCUMENTATION: JOB ID: [id number] 2010 [employer]- All Rights Reserved Reading location - IP/workstation name: [id number]
--- NOTE | 2020-02-13 12:48 | RADIOLOGY REPORT (SQ) ---
EXAM DESCRIPTION: HIP LEFT AP/LATERAL IMAGES COMPLETED DATE/TIME: 02/13/2020 11:27 am REASON FOR STUDY: trauma COMPARISON: None. NUMBER OF VIEWS: Two views. TECHNIQUE: AP pelvis and additional frog legview of the left hip. LIMITATIONS: None. FINDINGS: MINERALIZATION: Normal. LEFT HIP: No fracture or dislocation. No worrisome bone lesions. RIGHT HIP: No fracture or dislocation. No worrisome bone lesions. Limited views. PUBIS AND ISCHIUM: No fracture. PELVIS: No fracture. SACRUM: No fracture or dislocation. No worrisome bone lesions. LOWER LUMBAR SPINE: No fracture or dislocation. No worrisome bone lesions. No significant disc disea se. SOFT TISSUES: No findings. OTHER: No other significant finding. IMPRESSION: NEGATIVE STUDY OF THE LEFT HIP AND PELVIS. NO RADIOGRAPHIC EVIDENCE OF ACUTE INJURY. TECHNICAL DOCUMENTATION: JOB ID: [id number] 2010 [employer]- All Rights Reserved Reading location - IP/workstation name: [email or web address]
[2020-02-13 12:54] LABS: ABSOLUTE EOSINOPHILS # (AUTO) 0.2 10^3/uL (0.0-0.6); ABSOLUTE LYMPHOCYTES (AUTO) 1.2 10^3/uL (0.5-4.7); ABSOLUTE MONOCYTES (AUTO) 0.4 10^3/uL (0.1-1.4); ABSOLUTE NEUT (AUTO) 4.3 10^3/uL (1.7-8.2); BASOPHILS % (AUTO) 0.5 % (0-2); EOSINOPHILS % (AUTO) 3.7 % (0-6); HEMATOCRIT 34.7 % (36.0-47.0); LYMPHOCYTES % (AUTO) 19.5 % (13-45); MEAN CORPUSCULAR HEMOGLOBIN 29.5 pg (27.0-33.4); MEAN CORPUSCULAR HGB CONC 34.5 g/dL (32.0-36.0); MEAN CORPUSCULAR VOLUME 85 fl (80-97); MONOCYTES % (AUTO) 7.2 % (3-13); PLATELET COUNT 275 10^3/uL (150-450); RED BLOOD COUNT 4.06 10^6/uL (3.72-5.28); RED CELL DISTRIBUTION WIDTH 15.5 % (11.5-14.0); SEGMENTED NEUTROPHILS % (AUTO) 69.1 % (42-78); TOTAL CELLS COUNTED % (AUTO) 100 %; WHITE BLOOD COUNT 6.2 10^3/uL (4.0-10.5)
[2020-02-13 13:00] LABS: ALBUMIN 3.7 g/dL (3.5-5.0); ALKALINE PHOSPHATASE 55 U/L (38-126); ASPARTATE AMINO TRANSFERASE 23 U/L (14-36); BILIRUBIN,DIRECT 0.2 mg/dL (0.0-0.4); BILIRUBIN,TOTAL 0.8 mg/dL (0.2-1.3); BLOOD UREA NITROGEN 12 mg/dL (7-20); CALCIUM 8.9 mg/dL (8.4-10.2); CHLORIDE 105 mmol/L (98-107); GLUCOSE 89 mg/dL (75-110); POTASSIUM 3.6 mmol/L (3.6-5.0)
[2020-02-13 13:05] LABS: ANION GAP 5 (5-19); CARBON DIOXIDE 29 mmol/L (22-30)
[2020-02-13] MEDS ORDERED: NORMAL SALINE 1000 ML 1,000 ML IV ONE (13:21)
[2020-02-13] MEDS ORDERED: FENTANYL CITRATE INJ/PF 100 MCG/2 ML AMPUL IV ONE (13:22)
[2020-02-13] MEDS ORDERED: ONDANSETRON HCL INJ/PF 4 MG/2 ML SDV IV ONE (13:22)
[2020-02-13 15:03] LABS: APPEARANCE,URINE CLEAR; BILIRUBIN,URINE NEGATIVE (NEGATIVE); COLOR,URINE YELLOW; GLUCOSE, URINE NEGATIVE (NEGATIVE); KETONES,URINE NEGATIVE (NEGATIVE); PROTEIN,URINE NEGATIVE (NEGATIVE); URINE SPECIFIC GRAVITY 1.011; UROBILINOGEN,URINE NEGATIVE mg/dL (<2.0)
[2020-02-13 15:20] LABS: URINE AMPHETAMINES SCREEN NEGATIVE; URINE BARBITURATES SCREEN NEGATIVE; URINE BENZODIAZEPINES SCREEN NEGATIVE; URINE COCAINE SCREEN NEGATIVE; URINE MARIJUANA (THC) SCREEN NEGATIVE; URINE METHADONE SCREEN NEGATIVE; URINE PHENCYCLIDINE SCREEN NEGATIVE
--- NOTE | 2020-02-13 15:53 | RADIOLOGY REPORT (SQ) ---
EXAM DESCRIPTION: VENOUS UNILATERAL LOWER IMAGES COMPLETED DATE/TIME: 02/13/2020 3:38 pm REASON FOR STUDY: LLE pain; hx. DVT COMPARISON: None. TECHNIQUE: Dynamic and static ferrer scale and color images acquired of the left leg venous system. Se lected spectral images acquired with additional compression and augmentation maneuvers. The contralat eral common femoral vein and saphenofemoral junction were also imaged. Images stored on PACS. LIMITATIONS: None. FINDINGS: COMMON FEMORAL: Normal phasicity, compression and augmentation. No visualized echogenic ma terial on ferrer scale. No defects on color images. FEMORAL: Normal compression and augmentation. No visualized echogenic material on ferrer scale. No defe cts on color images. POPLITEAL: Normal compression, augmentation. No visualized echogenic material on ferrer scale. No defec ts on color images. CALF VESSELS: Normal compression, augmentation. No visualized echogenic material on ferrer scale. No de fects on color images. GSV and SSV: Normal compression, augmentation. No visualized echogenic material on ferrer scale. No def ects on color images. ANY DEEP VENOUS INSUFFICIENCY: Not evaluated. ANY EVIDENCE OF POPLITEAL CYST: No. OTHER: No other significant finding. CONTRALATERAL COMMON FEMORAL VEIN AND SAPHENOFEMORAL JUNCTION: Normal phasicity, compression and augmentation. No visualized echogenic material on ferrer scale. No de fects on color images. IMPRESSION: NO EVIDENCE OF DVT OR SVT IN THE LEFT LEG. TECHNICAL DOCUMENTATION: JOB ID: [id number] 2010 [employer]- All Rights Reserved Reading location - IP/workstation name: [email or web address]
[2020-02-13] MEDS ORDERED: OXYCODONE-ACETAMINOPHEN 5-325 MG TABLET PO ONE (16:34)
[2020-02-13] MEDS ORDERED: DEXAMETHASONE SOD PHOS INJ 10 MG/1 ML VIAL IV ONE (16:34)
[2020-02-13 17:52] VITALS: BP 120/64
--- NOTE | 2020-02-13 23:39 | EKG REPORT ---
SEVERITY:- NORMAL ECG - SINUS RHYTHM : Confirmed by: Elissa Mitchell 13-Feb-2020 23:38:40
== END 2020-02-13 17:00 | disposition home or self-care (01) ==
LOC: ER 08:42
DX: M54.32 Sciatica, left side (principal); M25.552 Pain in left hip; Z91.013 Allergy to seafood; Z86.718 Personal history of other venous thrombosis and embolism; Z90.49 Acquired absence of other specified parts of digestive tract
CPT/HCPCS: 93005; 99285; 96361; 96374; 96375; 36415; 85025; 80053; 81001; 80307; 93971; 73502; 72110; 93010; J3010; J1885; J2405; J7030; J1100

== ENCOUNTER → 2020-02-18 | Outpatient (CLI) | payer MEDICAID ==
--- NOTE | 2020-02-18 19:32 | RADIOLOGY REPORT (SQ) ---
EXAM DESCRIPTION: KUB/ABDOMEN (SINGLE VIEW) IMAGES COMPLETED DATE/TIME: 02/18/2020 5:21 pm REASON FOR STUDY: K59.00 CONSTIPATION, UNSPECIFIED CONSTIPATION TYPE K59.00 CONSTIPATION, UNSPECIFI ED COMPARISON: None. NUMBER OF VIEWS: One view. TECHNIQUE: Supine radiographic image of the abdomen acquired. LIMITATIONS: None. FINDINGS: BOWEL GAS PATTERN: Retained stool. Nonobstructive gas pattern. CALCIFICATIONS: No suspicious calcifications. SOFT TISSUES: No gross mass or suggestion of organomegaly. HARDWARE: None in the abdomen. BONES: No acute fracture. No worrisome bone lesions. OTHER: No other significant finding. IMPRESSION: Constipation. Moderate stool burden. TECHNICAL DOCUMENTATION: JOB ID: [id number] 2010 [employer]- All Rights Reserved Reading location - IP/workstation name: [email or web address]
== END ==
LOC: RAD 16:59
PROVIDERS: ATTEND Nurse Practitioner Acute Care
DX: K59.00 Constipation, unspecified (principal)
CPT/HCPCS: 74018